=== PATIENT | female | born 1930 | race Caucasian/White ===

== ENCOUNTER 2018-03-17 08:13 | Inpatient (IN) | payer MEDICARE ==
[~2018-03-17] VITALS: Ht 157.5 cm; Wt 65.8 kg
[2018-03-17 08:20] VITALS: BP 130/73
--- NOTE | 2018-03-17 08:20 | NUR ---
TO BED # 7 AMBULATORY WITH NC, REPORT GIVEN TO JANIYA HICKEY
[2018-03-17] MEDS ORDERED: NACL 0.9% 1,000 ML IV SCH (09:12)
[2018-03-17] MEDS ORDERED: NACL 0.9% 1,000 ML IV ONE (09:12)
[2018-03-17] MEDS ORDERED: SODIUM PHOSPHATE 118 ML ENEM RC ONE (09:15)
[2018-03-17] MEDS ORDERED: METOCLOPRAMIDE 10 MG/2 ML INJ VIAL IVP ONE (09:15)
[2018-03-17] MEDS ORDERED: LACTULOSE 20 GM/30 ML UDC PO ONE (09:15)
[2018-03-17 09:32] LABS: BASOPHILS % (AUTO) 0.4 % (0.0-2.0); HEMATOCRIT 39.8 % (36-48); HEMOGLOBIN 12.7 g/dL (12.0-16.0); LYMPHOCYTES % (AUTO) 8.5 % (20.5-51.1); MEAN CORPUSCULAR HEMOGLOBIN 27 pg (27-31); MEAN CORPUSCULAR HGB CONC 32 g/dL (33-37); MEAN CORPUSCULAR VOLUME 85.6 fL (80-94); MONOCYTES # (AUTO) 0.7 K/uL (0.8-1.0); MONOCYTES % (AUTO) 6.3 % (1.7-9.3); NEUTROPHILS # (AUTO) 9.7 K/uL (1.8-7.7); NEUTROPHILS % (AUTO) 84.8 % (42.2-75.2); PLATELET COUNT (AUTO) 287 K/uL (140-450); RED BLOOD CELL COUNT(AUTO) 4.65 MIL/uL (4.20-5.40); RED CELL DISTRIBUTION WIDTH 14.6 % (11.6-13.7); WHITE BLOOD COUNT (AUTO) 11.4 K/uL (4.8-10.8)
--- NOTE | 2018-03-17 09:32 | NUR ---
CONSTIPATION, SINCE TUESDAY, BACK PAIN FOR 3 DAYS. HX : COPD, EMPHYSIMA. DENIES N/V/D; SKIN IS PINK/WARM/DRY; AAOX4 WITH EVEN AND STEADY GAIT. PT DENIES ANY FEVER, CP OR COUGH AT THIS TIME; PATIENT STATES PAIN OF 7/10 AT THIS TIME; PATIENT POSITIONED FOR COMFORT; HOB ELEVATED; BEDRAILS UP X2; BED DOWN. ER MD MADE AWARE OF PT STATUS.
--- NOTE | 2018-03-17 09:41 | NUR ---
PT TAKEN TO CT , ACCOMPANIED BY TIMBER REPAIRER.
--- NOTE | 2018-03-17 09:41 | NUR ---
PT TAKEN TO CT AT THIS TIME
[2018-03-17 09:45] LABS: ANION GAP 13.2 (8-16); CARBON DIOXIDE 27.9 mmol/L (21-32); CHLORIDE 100 mmol/L (98-107); POTASSIUM 4.1 mmol/L (3.5-5.1); SODIUM SERUM 137 mmol/L (136-145)
[2018-03-17 09:46] LABS: ALBUMIN 3.5 g/dL (3.4-5.0); AMYLASE 52 U/L (25-115); ASPARTATE AMINOTRANSFERASE 48 U/L (15-37); CREATININE 1.3 mg/dL (0.6-1.3); GLUCOSE 112 mg/dL (74-106); LIPASE 80 U/L (73-393); TOTAL BILIRUBIN 0.4 mg/dL (0.0-1.0); UREA NITROGEN, BLOOD 24 mg/dL (7-18)
--- NOTE | 2018-03-17 09:52 | NUR ---
PT RETURNED FROM CT AT THIS TIME
[2018-03-17 10:43] LABS: APPEARANCE,URINE CLOUDY (CLEAR); COLOR,URINE YELLOW (YELLOW)
[2018-03-17 10:44] LABS: BILIRUBIN,URINE NEGATIVE (NEGATIVE); BLOOD, URINE TRACE (NEGATIVE); LEUKOCYTE ESTERASE ,URINE NEGATIVE (NEGATIVE); NITRITE, URINE NEGATIVE (NEGATIVE); UGLUCOSE NEGATIVE (NEGATIVE)
[2018-03-17 10:49] LABS: RBC,URINE 3-10 (FEW) /HPF (0-5)
[2018-03-17 10:50] LABS: URINE AMORPHOUS URATE 4+ /HPF (None Seen); WBC,URINE 0-5 (RARE) /HPF (0-5)
[2018-03-17] MEDS ORDERED: PRED20TA5 PO (11:24)
[2018-03-17] MEDS ORDERED: FLUT1BLS3 IH (11:24)
[2018-03-17] MEDS ORDERED: AMIO200T5 PO (11:24)
[2018-03-17] MEDS ORDERED: LEVO0.1331 PO (11:24)
[2018-03-17] MEDS ORDERED: ATOR10TA PO (11:24)
[2018-03-17] MEDS ORDERED: ASPI81CT89 PO (11:24)
[2018-03-17] MEDS ORDERED: OMEP20TC PO (11:24)
[2018-03-17 12:02] LABS: PROTHROMBIN TIME 10.4 secs (10.8-13.4)
[2018-03-17] MEDS ORDERED: MORPHINE SULFATE 2 MG/ML SYR IVP PRN (12:50)
[2018-03-17] MEDS: NACL 0.9% 1,000 ML IV SCH ×2 (12:50→20:07)
[2018-03-17] MEDS ORDERED: ACETAMINOPHEN 325 MG TAB PO PRN (12:50)
[2018-03-17] MEDS ORDERED: HYDROcodone/APAP 5/325 MG 1 TAB TAB PO PRN (12:50)
[2018-03-17] MEDS ORDERED: ONDANSETRON 4 MG/2 ML VIAL IVP PRN (12:50)
--- NOTE | 2018-03-17 12:59 | NUR ---
REPORT GIVEN TO DELMAR MARLEY
--- NOTE | 2018-03-17 14:00 | NUR ---
RECEIVED REPORT FROM ER NURSE AT BEDSIDE. PT IS AMBULATORY,, HAS GENERALISED WEAKNESS. PT HAS LEFT HAND RESTRICTION, HX OF LYMPHECTOMY. PT AOX4, ADMITTED WITH DX OF OBSTRUCTIVE HYDRONEPHROSIS. CC OF RT LOWER FLANK PAIN WITH CONSTIPATION X3 DAYS. HAS IV RT AC 20 G. IVF NS INFUSING AT 100 ML/HR. NO SIGN OF DISTRESS NOTED AT TIHIS TIME. COMPLAINING OF PAIN. INFORMED HER THAT WILL MEDICATE WITH PAIN MEDS. CALL LIGHT WITHIN PT REACH.
--- NOTE | 2018-03-17 14:00 | NUR ---
Patient will be admitted to care of DR MORRIS. Admited to TELE. Will go to room 110B. Belongings list completed. Report to SOFIA HICKEY.
[2018-03-17 16:00] VITALS: BP 123/65
--- NOTE | 2018-03-17 16:30 | NUR ---
CHECKED ON PT. VS WITHI NORMAL RANGE, STATES PAIN AT SAME LEVEL, BUT TOLERATBLE RT NOW. PT OFFERED WITH JUICE AND JELLO AND FRUIT CUP. NO SIGN OF DISTRESS AT THIS TIME. CALL LIGHT WITHIN PT REACH. WILL CONTINUE TO MONITOR PT.
--- NOTE | 2018-03-17 17:59 | NUR ---
CHECKED ON PT EATING HER FOOD. STATES BEING OKAY AT THIS TIME. CALL LIGHT WITHIN PT REACH. WILL CONTINUE TO MONITOR PT.
--- NOTE | 2018-03-17 19:25 | NUR ---
ENDORSED PT TO PM NURSE AT BEDSIDE. PT IN STABLE CONDITION.
--- NOTE | 2018-03-17 19:25 | NUR ---
RECEIVED BEDSIDE REPORT FROM RN SOFIA, PATIENT IN BED, ON 2 L NC, REPORTS PAIN IN BACK. ALERT AND ORIENTATED X4, ON FALL RISK FOR HX OF FALLS, IV IN RIGHT AC INFUSING NS AT 100 ML/HR, DRESSING IS WET, ASKED IN WANTED TO BE CHANGED, PATIENT REPORTED NO SINCE THE TAPE HURTS TO BE REMOVED, WILL CONTINUE TO MONITOR SITE. PATIENT SIGNED CONSENT FOR EGD, CONSENT IN CHART. V/S TAKEN ALL WITHIN BASELINE, CALL LIGHT WITHIN REACH, WILL CONTINUE TO MONITOR.
[2018-03-17 20:00] VITALS: BP 144/60
--- NOTE | 2018-03-17 20:00 | NUR ---
CALLED DR CARRERO, MOTOR MECHANIC DR IS DR DEGROOT. WAITING FOR CALL BACK FOR ORDERS FOR NPO STATUS, DEXTROSE, AND BREATHING TREATMENTS.
[2018-03-17] MEDS: METOPROLOL 25 MG TAB PO SCH (20:07)
--- NOTE | 2018-03-17 20:07 | NUR ---
DUE MEDICATIONS GIVEN, PATIENT TOLERATED WELL, PATIENT GIVEN NORCO FOR BACK PAIN.
--- NOTE | 2018-03-17 22:15 | NUR ---
PATIENT HAD MODERATE SIZE BM.
--- NOTE | 2018-03-17 22:35 | NUR ---
CALL FROM DR DEGROOT, ORDERS FOR DEXTROSE 0.9% AT 100 ML/HR, BREATHING TREATMENTS WITH ALBUTEROL Q6HR PRN, AND NPO STATUS FOR EGD PROCEDURE.
[2018-03-17] MEDS: DEXT 5% /NACL 0.9% 1,000 ML IV SCH (23:08)
[2018-03-17] MEDS: ALBUTEROL SULFATE/IPRATROPIU 3 ML SOL IH PRN (23:32)
[2018-03-18] VITALS: BP 140/60
--- NOTE | 2018-03-18 00:20 | NUR ---
V/S TAKEN ALL WITHIN BASELINE, PATIENT DENIES PAIN. PRE-OP CHECKLIST COMPLETED.
--- NOTE | 2018-03-18 00:30 | NUR ---
PLACED PATIENTS NECKLESS IN PURSE, PATIENT AWARE.
--- NOTE | 2018-03-18 02:30 | NUR ---
ASSISTED PATIENT TO BED SIDE COMMODE. PATIENT STATES "I FEEL LIKE I NEED TO USE RESTROOM". WILL ASSIST BACK TO BED.
[2018-03-18] MEDS: ALBUTEROL SULFATE/IPRATROPIU 3 ML SOL IH PRN ×4 (02:40→19:18)
--- NOTE | 2018-03-18 02:40 | NUR ---
AWAKE AND ALERT C/O SOB HHN PRN THERAPY GIVEN ENCOURAGED PATIENT FOR DEEP BREATHING AND COUGH DURING THERAPY SPONTANEOUS EXPECTORATION OF MODERATE THICK YELLOW SECRETIONS
--- NOTE | 2018-03-18 02:40 | NUR ---
ASSISTED PATIENT BACK TO BED, PATIENT C/O HAVING PROBLEMS BREATHING, PLACED HOB AT 90 DEGREES, O2 SAT 94% ON 3 L NC WITH HUMIDIFIER. CALLED R/T TO GIVE BREATHING TREATMENT. R/T AT BEDSIDE.
--- NOTE | 2018-03-18 02:55 | NUR ---
BREATHING TREATMENT COMPLETED, PATIENT EXPELLED YELLOW SPUTUM. R/T RECOMMEND BREATHING TREATMENT Q6H WHILE AWAKE AND IS. WILL CALL DR CARRERO FOR ORDERS.
[2018-03-18 04:00] VITALS: BP 128/59
--- NOTE | 2018-03-18 05:13 | NUR ---
WILL HOLD SYNTHROID PER NPO STATUS.
[2018-03-18] MEDS: LEVOTHYROXINE 0.112 MG, LEVOTHYROXINE 0.025 MG PO SCH ×2 (05:23)
[2018-03-18 06:46] LABS: BASOPHILS % (AUTO) 0.4 % (0.0-2.0); EOSINOPHILS % (AUTO) 0.2 % (0.0-4.0); HEMATOCRIT 37.6 % (36-48); HEMOGLOBIN 12.2 g/dL (12.0-16.0); LYMPHOCYTES # (AUTO) 1.5 K/uL (2.5-16.5); LYMPHOCYTES % (AUTO) 18.6 % (20.5-51.1); MEAN CORPUSCULAR HEMOGLOBIN 28 pg (27-31); MEAN CORPUSCULAR HGB CONC 32 g/dL (33-37); MEAN CORPUSCULAR VOLUME 86.6 fL (80-94); MONOCYTES # (AUTO) 0.8 K/uL (0.8-1.0); MONOCYTES % (AUTO) 10.3 % (1.7-9.3); NEUTROPHILS # (AUTO) 5.7 K/uL (1.8-7.7); NEUTROPHILS % (AUTO) 70.5 % (42.2-75.2); PLATELET COUNT (AUTO) 257 K/uL (140-450); RED BLOOD CELL COUNT(AUTO) 4.35 MIL/uL (4.20-5.40); WHITE BLOOD COUNT (AUTO) 8.2 K/uL (4.8-10.8)
--- NOTE | 2018-03-18 07:11 | NUR ---
ENDORSED PATIENT TO DAY SHIFT NURSE, PATIENT STABLE.
--- NOTE | 2018-03-18 07:15 | NUR ---
RECEIVED PT FROM WORKERS COMPENSATION PARALEGAL NURSERAVINDER, PT IS AWAKE LYING ON THE BED WITH SIDE RAILS UP AND CALL LIGHT WITHIN REACH, SAFETY AND FALL PRECAUTION INITIATED. PT HAS A CENTRAL LINE ON THE LEFT INTRAJUGULAR VEIN, TRIPLE,LUMEN ON SALINE LOCK, PT HAS A LEFT KNEE FRACTURE WITH BRACE ON, ELEVATED ON A PILLOW, PT HAS BRUISES ON THE FACE AND HAS A LEFT FOREHEAD WOUND FROM A FALL AND INCONTINENT DERMATITIS. PT DENIES PAIN AT THIS TIME AND NO SIGN OF DISTRESS NOTED. WILL CONTINUE TO MONITOR PT. Addendum: 03/18/18 at 1818 by Ruth Slaughter RN ABOVE NOTE IS NOT FOR THE PT.
--- NOTE | 2018-03-18 07:15 | NUR ---
RECEIVED PT FROM SENSOR OPERATOR NURSE, SUMMER, PT IS AWAKE AND LYING ON THE BED WITH SIDE RAILS UP AND CALL LIGHT WITHIN REACH, PT IS ON O2 2L NC WITH AND IV LINE ON THE RT AC G. 20, INTACT WITH D5NS AT 100ML/HR, INFUSING, PT DENIES PAIN, PT HAS A RESTRICTED LEFT ARM, SIGN POSTED. NO SIGN OF DISTRESS NOTED AND WILL CONTINUE TO MONITOR.
[2018-03-18] MEDS ORDERED: fentaNYL 0.05 MG/ML VIAL ONE (07:26)
[2018-03-18] MEDS ORDERED: MIDAZOLAM 2 MG/2 ML VIAL ONE (07:27)
[2018-03-18] MEDS: MIDAZOLAM 2 MG/2 ML VIAL IVP ONE ×2 (07:46→08:00)
[2018-03-18] MEDS: fentaNYL 0.05 MG/ML VIAL IVP ONE ×2 (07:47→08:00)
[2018-03-18 08:00] VITALS: BP 148/86
--- NOTE | 2018-03-18 08:00 | NUR ---
PT IS AWAKE AND LYING ON THE BED, VITAL SIGNS TAKEN AND IS WITHIN NORMAL LIMIT, WILL CONTINUE TO MONITOR.
--- NOTE | 2018-03-18 08:15 | NUR ---
PT IS OFF UNIT NOW FOR AN EGD. PT IS STABLE AT THIS TIME.
[2018-03-18 08:17] LABS: ANION GAP 13.6 (8-16); CARBON DIOXIDE 26.2 mmol/L (21-32); CHLORIDE 106 mmol/L (98-107); GLUCOSE 101 mg/dL (74-106); POTASSIUM 3.8 mmol/L (3.5-5.1); SODIUM SERUM 142 mmol/L (136-145)
[2018-03-18 08:18] LABS: ALBUMIN 2.9 g/dL (3.4-5.0); ASPARTATE AMINOTRANSFERASE 43 U/L (15-37); TOTAL BILIRUBIN 0.3 mg/dL (0.0-1.0); UREA NITROGEN, BLOOD 19 mg/dL (7-18)
--- NOTE | 2018-03-18 08:50 | NUR ---
PT IS ABACK TO ROOM FROM THE EGD, PT IS STABLE AT THIS TIME AND NOM SIGN OF DISTRESS NOTED. WILL MONITOR.
[2018-03-18] MEDS ORDERED: NON-FORMULARY ITEM (Levothyroxine Sodium* (Synthroid*) 0.137 MG) PO SCH (09:00)
[2018-03-18] MEDS: DEXT 5% /NACL 0.9% 1,000 ML IV SCH ×2 (09:34→18:22)
[2018-03-18] MEDS: PANTOPRAZOLE 40 MG INJ VIAL IVP SCH (09:35)
[2018-03-18] MEDS: PSYLLIUM 12.2 GM/PKT PO SCH (09:35)
[2018-03-18] MEDS: ASPIRIN 81 MG TAB.CHEW PO SCH ×2 (09:36→09:38)
[2018-03-18] MEDS: ATORVASTATIN 20 MG TAB PO SCH (09:38)
[2018-03-18] MEDS: METOPROLOL 25 MG TAB PO SCH ×2 (09:39→21:33)
[2018-03-18] MEDS: AMIODARONE 200 MG TAB PO SCH (09:39)
[2018-03-18] MEDS: predniSONE 20 MG TAB PO SCH (09:39)
[2018-03-18] MEDS: SODIUM PHOSPHATE 118 ML ENEM RC SCH (09:40)
[2018-03-18] MEDS: BISACODYL 10 MG SUPP RC SCH (09:40)
--- NOTE | 2018-03-18 09:50 | NUR ---
PATIENT HAS BEEN SCREENED AND CATEGORIZED MODERATE NUTRITION RISK. PATIENT WILL BE SEEN WITHIN 3-5 DAYS OF ADMISSION. 03/20/18-03/22/[address] Addendum: 03/20/18 at [address] NOTE [facility] REFERRAL RECEIVED 03/17/18 FOR 'NOT APPLICABLE' DOES NOT MEET HIGH NUTRITION RISK CRITERIA. PATIENT WILL BE SEEN/ASSESSED STATED ABOVE. TAWANA FREIRE RD
--- NOTE | 2018-03-18 09:58 | NUR ---
ONLY ONE ASPIRIN GIVEN TO PT.
[2018-03-18 12:00] VITALS: BP 137/68
[2018-03-18 16:00] VITALS: BP 138/74
--- NOTE | 2018-03-18 16:15 | NUR ---
PT'S IV LINE WAS OPUT AND A NEW IV LINE WAS INSERTED ON THE RT HAND G. 22 WITH D5NS AT 100ML/HR, INFUSING.
--- NOTE | 2018-03-18 19:30 | NUR ---
RECEIVED BEDSIDE REPORT FROM RUPERTO MASON, PATIENT IN BED, ON 2 L NC, IV IN RIGHT FA 22 G INFUSING DEXTROSE AND NS AT 100 ML/HR, V/S TAKEN ALL WITHIN BASELINE. PATIENT DENIES PAIN BUT EXPRESSES CONCERNS THAT SHE IS SAD THAT SHE HAS TO LIVE WITH KIDNEY PROBLEMS FOR THE REST OF HER LIFE. OFFERED THERAPEUTIC COMMUNICATION AND ALLOWED PATIENT TO VENT HER CONCERNS. WILL CONTINUE TO MONITOR.
--- NOTE | 2018-03-18 19:30 | NUR ---
ENDORSED PT TO GOVERNMENT AFFAIRS SPECIALIST NURSE, SUMMER FOR CONTINUITY OF CARE, PT TIS STABLE AT THIS TIME.
[2018-03-18 20:00] VITALS: BP 132/98
--- NOTE | 2018-03-18 21:00 | NUR ---
EXPLAINED DUE MEDICATION, WILL ADMINISTER ACCORDING TO MD ORDER.
--- NOTE | 2018-03-18 23:00 | NUR ---
ASSISTED PATIENT RESTROOM, PATIENT HAS STEADY GAIT, PATIENT URINATED X1, ASSISTED BACK TO BED.
[2018-03-19] VITALS: BP 130/39
[2018-03-19] MEDS: ALBUTEROL SULFATE/IPRATROPIU 3 ML SOL IH PRN ×3 (00:22→12:17)
--- NOTE | 2018-03-19 00:30 | NUR ---
ASSISTED PATIENT TO AMBULATED TO BEDSIDE COMMODE, PATIENT C/O HAVING DIFFICULTY BREATHING, CALLED R/T TO GIVE BREATHING TREATMENT.
--- NOTE | 2018-03-19 01:49 | NUR ---
CALL DAUGHTER KARY, LEFT MESSAGE, CALL BACK FROM DAUGHTER, SHE SAID SHE WILL BE HERE TO SIGN CONSENT IN MORNING. Addendum: 03/19/18 at 0632 by Caridad Fish RN WRONG PATIENT
--- NOTE | 2018-03-19 03:36 | NUR ---
PATIENT REQUESTED A SLEEPING PILL, EXPLAINED IT IS TOO LATE TO TAKE SLEEPING FEEL AND WE NEED AN ORDER. PATIENT STATED OKAY.
[2018-03-19 04:00] VITALS: BP 126/80
[2018-03-19] MEDS: DEXT 5% /NACL 0.9% 1,000 ML IV SCH ×2 (04:00→16:05)
[2018-03-19] MEDS: LEVOTHYROXINE 0.112 MG, LEVOTHYROXINE 0.025 MG PO SCH ×2 (05:51)
--- NOTE | 2018-03-19 06:31 | NUR ---
PATIENT C/O PAIN AT IV, STARTED NEW IV ON RIGHT HAND 20 G. WILL CONTINUE TO MONITOR.
--- NOTE | 2018-03-19 07:30 | NUR ---
ENDORSED PATIENT TO DAY SHIFT NURSE NEETU, PATIENT STABLE.
--- NOTE | 2018-03-19 07:30 | NUR ---
PATIENT WAS AWAKE, ALERT. RESPIRATION EVEN, UNLABOR ON 3L NC. SKIN DRY AND WARM. IV PATENT AND INTACT. DENIED PAIN, SOB AT THIS TIME. PLAN OF CARE WAS DISCUSSED WITH PATIENT. BED AT LOW POSITION, SIDE RAILS UP. CALL LIGHT WITHIN REACH.
[2018-03-19 07:31] LABS: BASOPHILS % (AUTO) 0.3 % (0.0-2.0); EOSINOPHILS % (AUTO) 0.1 % (0.0-4.0); HEMATOCRIT 37.3 % (36-48); LYMPHOCYTES # (AUTO) 1.5 K/uL (2.5-16.5); MEAN CORPUSCULAR HEMOGLOBIN 28 pg (27-31); MEAN CORPUSCULAR HGB CONC 32 g/dL (33-37); MEAN CORPUSCULAR VOLUME 86.8 fL (80-94); MONOCYTES # (AUTO) 0.9 K/uL (0.8-1.0); MONOCYTES % (AUTO) 11.9 % (1.7-9.3); NEUTROPHILS # (AUTO) 4.9 K/uL (1.8-7.7); NEUTROPHILS % (AUTO) 66.7 % (42.2-75.2); PLATELET COUNT (AUTO) 267 K/uL (140-450); RED BLOOD CELL COUNT(AUTO) 4.29 MIL/uL (4.20-5.40); WHITE BLOOD COUNT (AUTO) 7.3 K/uL (4.8-10.8)
[2018-03-19 08:00] VITALS: BP 147/87
[2018-03-19 08:16] LABS: ALBUMIN 3.1 g/dL (3.4-5.0); ANION GAP 14.7 (8-16); ASPARTATE AMINOTRANSFERASE 82 U/L (15-37); CARBON DIOXIDE 26.2 mmol/L (21-32); CHLORIDE 108 mmol/L (98-107); CREATININE 0.9 mg/dL (0.6-1.3); GLUCOSE 90 mg/dL (74-106); POTASSIUM 3.9 mmol/L (3.5-5.1); SODIUM SERUM 145 mmol/L (136-145); TOTAL BILIRUBIN 0.3 mg/dL (0.0-1.0); UREA NITROGEN, BLOOD 16 mg/dL (7-18)
[2018-03-19] MEDS: SODIUM PHOSPHATE 118 ML ENEM RC SCH (09:00)
[2018-03-19] MEDS: PANTOPRAZOLE 40 MG INJ VIAL IVP SCH (09:36)
[2018-03-19] MEDS: AMIODARONE 200 MG TAB PO SCH (09:39)
[2018-03-19] MEDS: predniSONE 20 MG TAB PO SCH (09:40)
[2018-03-19] MEDS: BISACODYL 10 MG SUPP RC SCH (09:41)
[2018-03-19] MEDS: ATORVASTATIN 20 MG TAB PO SCH (09:41)
[2018-03-19] MEDS: METOPROLOL 25 MG TAB PO SCH ×2 (09:42→21:00)
--- NOTE | 2018-03-19 09:45 | NUR ---
PATIENT WAS AWAKE, ALERT. RESPIRATION EVEN, UNLABOR ON 2L NC. MEDS WERE GIVEN PER ORDER. NO DISTRESS NOTED AT THIS TIME
[2018-03-19] MEDS: PSYLLIUM 12.2 GM/PKT PO SCH (09:46)
[2018-03-19] MEDS: ASPIRIN 81 MG TAB.CHEW PO SCH (09:59)
--- NOTE | 2018-03-19 11:43 | NUR ---
PATIENT WAS AWAKE, ALERT. RESPIRATION EVEN, UNLABOR ON 2L NC. DENIED PAIN, SOB AT THIS TIME. NO DISTRESS NOTED. FAMILY AT BEDSIDE. CALL LIGHT WITHIN REACH
[2018-03-19 12:00] VITALS: BP 159/79
--- NOTE | 2018-03-19 12:11 | NUR ---
PATIENT COMPLAINED OF SOB, REQUESTING TO HAVE BREATHING TREATMENT. RT WAS MADE AWARE
--- NOTE | 2018-03-19 12:15 | NUR ---
PATIENT WAS AWAKE, ALERT, SITTING ON BED. RESPIRATION EVEN, UNLABOR ON 2L NC. IV PATENT AND INTACT. NO DISTRESS NOTED AT THIS TIME. FAMILY AT BEDSIDE. CALL LIGHT WITHIN REACH Addendum: 03/19/18 at 1745 by Alexandria Roberts RN WRONG TIME, EXACT TIME 1415
[2018-03-19] MEDS ORDERED: FAMOTIDINE 20 MG/2 ML VIAL IV SCH (15:00)
[2018-03-19] MEDS ORDERED: ALBUTEROL SULFATE/IPRATROPIU 3 ML SOL IH PRN (15:40)
[2018-03-19 16:00] VITALS: BP 137/80
[2018-03-19] MEDS ORDERED: AZITHROMYCIN 500 MG in DEXTROSE 5% 250 ML IV SCH (16:00)
--- NOTE | 2018-03-19 16:00 | NUR ---
DR. CARRERO WAS MADE AWARE OF PATIENT CANNOT HAVE AMIODERONE AND ZITHROMAX TOGETHER PER PATIENT AND PHARMACY. LEVAQUIN WAS ORDERED PER DR. CARRERO, WILL MEDICATE PER ORDER
[2018-03-19] MEDS ORDERED: LEVOFLOXACIN 250 MG/D5 PREMIX 50 ML IV ONE (17:55)
[2018-03-19] MEDS: LEVOFLOXACIN 250 MG/D5 PREMIX 50 ML IV SCH (18:25)
--- NOTE | 2018-03-19 18:30 | NUR ---
PATIENT WAS AWAKE, ALERT. RESPIRATION EVEN, UNLABOR ON 2L NC. IV PATENT AND INTACT, MED WAS GIVEN PER ORDER. NO DISTRESS NOTED AT THIS TIME
[2018-03-19] MEDS: ALBUTEROL SULFATE/IPRATROPIU 3 ML SOL IH SCH (18:45)
--- NOTE | 2018-03-19 18:51 | NUR ---
RECEIVED PATIENT ON 3L NC, O2 SAT 96%. SCHEDULED BREATHING TREATMENT ADMINISTERED. PATIENT TOLERATED TX WELL, NO ADVERSE SIDE EFFECTS. PLACED PATIENT BACK ON 3L NC POST TX. NO RESPIRATORY DISTRESS NOTED AT THIS TIME. WILL CONTINUE TO MONITOR.
--- NOTE | 2018-03-19 19:16 | NUR ---
RECEIVED BEDSIDE REPORT FROM DAY SHIFT RN, PATIENT IN BED, ON 3 L VIA NC, NO SIGNS OF ACUTE DISTRESS, IV IN RIGHT HAND 20G, INFUSING LEVAQUIN AT 50 ML/HR, DRESSING INTACT. ON FALL RISK PRECAUTIONS, ASSISTED TO BEDSIDE COMMODE 100 ML OUTPUT. V/S TAKEN NOTED BP 153/95, WILL GIVE SCHEDULED BP MED. EXPLAINED PLAN OF CARE UPDATED BOARD, CALL LIGHT WITHIN REACH, WILL CONTINUE TO MONITOR.
--- NOTE | 2018-03-19 19:16 | NUR ---
ENDORSEMENT GIVEN TO SENIOR HEALTH CONSULTANT NURSE. PATIENT IS STABLE AT THIS TIME
[2018-03-19 20:00] VITALS: BP 153/95
[2018-03-19] MEDS: methylPREDNISolone SS 40 MG/ML VIAL IVP SCH (21:00)
[2018-03-19] MEDS ORDERED: TEMAZEPAM 15 MG CAP PO SCH (21:00)
--- NOTE | 2018-03-19 21:07 | NUR ---
PATIENT C/O HAVING DIFFICULTY SLEEPING THE LAST FEW DAYS. REQUESTED A SLEEPING PILL. CALLED DR CARRERO, CALL BACK FROM DR SUAREZ, ORDER FOR ZESTRIL 15 ML PO. WILL PUT IN ORDER AND ADMINISTER ACCORDING TO MD ORDER.
--- NOTE | 2018-03-19 22:30 | NUR ---
PATIENT REQUESTED BREATHING TREATMENT, NOTED EXPIRATORY WHEEZING, O SAT 96% ON 3 L VIA NC. CALLED R/T FOR BREATHING TREATMENT. Addendum: 03/19/18 at 2246 by Caridad Fish RN O2 SAT
--- NOTE | 2018-03-19 22:35 | NUR ---
PATIENT COMPLAINING OF SOB. PRN BREATHING TX ADMINISTERED. TOLERATED TX WELL, NO ADVERSE SIDE EFFECTS. PATIENTS STATES TO BE "FEELING A LITTLE BETTER." NO DISTRESS NOTED AT THIS TIME. RETURNED TO 3L NC. WILL CONTINUE TO MONITOR.
[2018-03-20] VITALS: BP 125/60
--- NOTE | 2018-03-20 00:31 | NUR ---
V/S TAKEN ALL WITHIN BASELINE, ASSISTED PATIENT TO AMBULATE TO BEDSIDE COMMODE, ASSISTED BACK TO BED.
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
[2018-03-20] MEDS: DEXT 5% /NACL 0.9% 1,000 ML IV SCH ×3 (01:00→22:09)
[2018-03-20] MEDS: ALBUTEROL SULFATE/IPRATROPIU 3 ML SOL IH SCH ×4 (01:25→19:36)
--- NOTE | 2018-03-20 01:37 | NUR ---
SCHEDULED BREATHING TX ADMINISTERED. TOLERATED TX WELL, NO ADVERSE SIDE EFFECTS. PLACED BACK ON 3L NC WITH BUBBLE HUMIDIFICATION. WILL CONTINUE TO MONITOR.
--- NOTE | 2018-03-20 01:50 | NUR ---
PATIENT RESTING IN BED, NO SIGNS OF DISTRESS, CALL LIGHT WITHIN REACH, BED ALARM ON.
[2018-03-20 04:00] VITALS: BP 150/87
--- NOTE | 2018-03-20 04:00 | NUR ---
V/S TAKEN ALL WITHIN BASELINE, WILL CONTINUE TO MONITOR.
[2018-03-20] MEDS: LEVOTHYROXINE 0.112 MG, LEVOTHYROXINE 0.025 MG PO SCH ×2 (06:22)
[2018-03-20] MEDS: methylPREDNISolone SS 40 MG/ML VIAL IVP SCH ×3 (06:22→21:01)
--- NOTE | 2018-03-20 07:20 | NUR ---
ENDORSED PATIENT TO DAY SHIFT NURSE, PATIENT RECEIVING BREATHING TREATMENTS.
--- NOTE | 2018-03-20 07:21 | NUR ---
RECEIVED BEDSIDE REPORT FROM PM NURSE CONTRERAS. PT IS AWAKE, VERBALLY RESPONSIVE. RT AT BEDSIDE PROVIDING TX. CALL LIGHT WITHIN REACH. DAUGHTER AT BEDSIDE.
[2018-03-20 07:47] LABS: BASOPHILS % (AUTO) 0.1 % (0.0-2.0); HEMOGLOBIN 11.7 g/dL (12.0-16.0); LYMPHOCYTES # (AUTO) 0.3 K/uL (2.5-16.5); LYMPHOCYTES % (AUTO) 5.2 % (20.5-51.1); MEAN CORPUSCULAR HEMOGLOBIN 28 pg (27-31); MEAN CORPUSCULAR HGB CONC 33 g/dL (33-37); MEAN CORPUSCULAR VOLUME 87.1 fL (80-94); MONOCYTES # (AUTO) 0.2 K/uL (0.8-1.0); MONOCYTES % (AUTO) 3.9 % (1.7-9.3); NEUTROPHILS # (AUTO) 5.4 K/uL (1.8-7.7); NEUTROPHILS % (AUTO) 90.8 % (42.2-75.2); PLATELET COUNT (AUTO) 283 K/uL (140-450); RED BLOOD CELL COUNT(AUTO) 4.14 MIL/uL (4.20-5.40); RED CELL DISTRIBUTION WIDTH 14.6 % (11.6-13.7); WHITE BLOOD COUNT (AUTO) 5.9 K/uL (4.8-10.8)
[2018-03-20 08:00] VITALS: BP 120/72
[2018-03-20] MEDS: ASPIRIN 81 MG TAB.CHEW PO SCH (08:30)
[2018-03-20] MEDS: AMIODARONE 200 MG TAB PO SCH (08:30)
[2018-03-20] MEDS: METOPROLOL 25 MG TAB PO SCH ×2 (08:30→21:01)
[2018-03-20] MEDS: ATORVASTATIN 20 MG TAB PO SCH (08:30)
[2018-03-20] MEDS: BISACODYL 10 MG SUPP RC SCH (08:31)
[2018-03-20] MEDS: FAMOTIDINE 20 MG/2 ML VIAL IV SCH (08:31)
[2018-03-20] MEDS: PSYLLIUM 12.2 GM/PKT PO SCH (08:31)
[2018-03-20] MEDS: PANTOPRAZOLE 40 MG INJ VIAL IVP SCH (08:31)
[2018-03-20 08:35] LABS: ANION GAP 13.4 (8-16); ASPARTATE AMINOTRANSFERASE 127 U/L (15-37); CARBON DIOXIDE 26.7 mmol/L (21-32); CHLORIDE 108 mmol/L (98-107); CREATININE 0.9 mg/dL (0.6-1.3); GLUCOSE 133 mg/dL (74-106); POTASSIUM 4.1 mmol/L (3.5-5.1); SODIUM SERUM 144 mmol/L (136-145); TOTAL BILIRUBIN 0.2 mg/dL (0.0-1.0); UREA NITROGEN, BLOOD 13 mg/dL (7-18)
[2018-03-20] MEDS: SODIUM PHOSPHATE 118 ML ENEM RC SCH (09:00)
[2018-03-20 12:00] VITALS: BP 147/95
--- NOTE | 2018-03-20 13:10 | NUR ---
DR CARRERO AT BEDSIDE ASSESSING PT.
[2018-03-20] MEDS ORDERED: ZOLPIDEM 5 MG TAB PO PRN (13:50)
--- NOTE | 2018-03-20 14:30 | NUR ---
PHYSICAL THERAPY CO-SIGN The Physical Therapy Progress Notes documented by Family Sociologist have been reviewed. I concur with the documentation of this SKIING TEACHER. Plan: continue as per plan of care. Reviewed/Co-Signed by: Mariela Marshall DPT Documentation Done by: Neo [place] SKIING TEACHER Addendum: 03/20/18 at 1457 by Mariela Marshall PT Amended: Links added.
--- NOTE | 2018-03-20 15:50 | NUR ---
PT WITH x1 SMALL BROWN FORMED STOOL IN COMMODE. ABLE TO TRANSFER TO COMMODE & PROVIDE PERICARE INDEPENDENTLY. PT HAS NO C/O DISCOMFORT, RESPIRATIONS EVEN & NONLABORED ON O2 @ 3LPM VIA N/C. CALL LIGHT WITHIN REACH. RIGHT HAND IV INTACT & ASYMPTOMATIC WITH ONGOING IVF.
[2018-03-20 16:00] VITALS: BP 145/78
[2018-03-20] MEDS: LEVOFLOXACIN 250 MG/D5 PREMIX 50 ML IV SCH (18:44)
--- NOTE | 2018-03-20 19:15 | NUR ---
BEDSIDE REPORT GIVEN TO PM NURSE REGINA.
--- NOTE | 2018-03-20 19:16 | NUR ---
RECEIVED REPORT FROM DAYSHIFT NURSE AT BEDSIDE FOR CONTINUITY OF CARE. PT AAOX2. PT IV NOTED R HAND 20G D5 NS 100ML/HR. NO SOB NO S/S OF DISTRESS ON O2 2L NC. BED LOWERED CALL LIGHT WITHIN REACH WILL CONTINUE TO MONITOR.
[2018-03-20 20:00] VITALS: BP 130/75
[2018-03-21] VITALS: BP 138/73
[2018-03-21] MEDS: ALBUTEROL SULFATE/IPRATROPIU 3 ML SOL IH SCH ×2 (01:21→07:20)
[2018-03-21 04:00] VITALS: BP 156/98
[2018-03-21] MEDS: LEVOTHYROXINE 0.112 MG, LEVOTHYROXINE 0.025 MG PO SCH ×2 (05:32)
[2018-03-21] MEDS: methylPREDNISolone SS 40 MG/ML VIAL IVP SCH ×2 (05:32→13:32)
[2018-03-21 06:40] LABS: HEMATOCRIT 34.4 % (36-48); HEMOGLOBIN 11.3 g/dL (12.0-16.0); LYMPHOCYTES # (AUTO) 0.6 K/uL (2.5-16.5); LYMPHOCYTES % (AUTO) 6.8 % (20.5-51.1); MEAN CORPUSCULAR HEMOGLOBIN 28 pg (27-31); MEAN CORPUSCULAR HGB CONC 33 g/dL (33-37); MEAN CORPUSCULAR VOLUME 86.7 fL (80-94); MONOCYTES # (AUTO) 0.5 K/uL (0.8-1.0); MONOCYTES % (AUTO) 5.8 % (1.7-9.3); NEUTROPHILS # (AUTO) 7.8 K/uL (1.8-7.7); NEUTROPHILS % (AUTO) 87.4 % (42.2-75.2); PLATELET COUNT (AUTO) 271 K/uL (140-450); RED BLOOD CELL COUNT(AUTO) 3.98 MIL/uL (4.20-5.40); WHITE BLOOD COUNT (AUTO) 8.9 K/uL (4.8-10.8)
[2018-03-21] MEDS: DEXT 5% /NACL 0.9% 1,000 ML IV SCH (07:00)
--- NOTE | 2018-03-21 07:15 | NUR ---
ENDORSED REPORT TO DAYSHIFT NURSE AT BEDSIDE FOR CONTINUITY OF CARE.
--- NOTE | 2018-03-21 07:16 | NUR ---
Received bedside report from pm nurse Janina. Pt sitting at edge of bed, AAOx2, no c/o discomfort. Call light within reach. Fall precaution protocol in place.
[2018-03-21 08:00] VITALS: BP 135/93
[2018-03-21 08:36] LABS: ANION GAP 11.5 (8-16); CARBON DIOXIDE 25.1 mmol/L (21-32); CHLORIDE 110 mmol/L (98-107); CREATININE 0.8 mg/dL (0.6-1.3); GLUCOSE 147 mg/dL (74-106); POTASSIUM 3.6 mmol/L (3.5-5.1); SODIUM SERUM 143 mmol/L (136-145); UREA NITROGEN, BLOOD 19 mg/dL (7-18)
[2018-03-21 08:37] LABS: ALBUMIN 2.8 g/dL (3.4-5.0); ASPARTATE AMINOTRANSFERASE 98 U/L (15-37); TOTAL BILIRUBIN 0.2 mg/dL (0.0-1.0)
[2018-03-21] MEDS: SODIUM PHOSPHATE 118 ML ENEM RC SCH (09:00)
--- NOTE | 2018-03-21 09:00 | NUR ---
Pt refused fleet enema at this time. Per pt, she wants to wait for dulcolax supp to work in a few hours. Agreed to receive enema if no BM in 4hours.
[2018-03-21] MEDS: METOPROLOL 25 MG TAB PO SCH (09:44)
[2018-03-21] MEDS: ATORVASTATIN 20 MG TAB PO SCH (09:45)
[2018-03-21] MEDS: BISACODYL 10 MG SUPP RC SCH (09:45)
[2018-03-21] MEDS: AMIODARONE 200 MG TAB PO SCH (09:45)
[2018-03-21] MEDS: ASPIRIN 81 MG TAB.CHEW PO SCH (09:45)
[2018-03-21] MEDS: PSYLLIUM 12.2 GM/PKT PO SCH (09:46)
[2018-03-21] MEDS: FAMOTIDINE 20 MG/2 ML VIAL IV SCH (09:46)
[2018-03-21] MEDS: PANTOPRAZOLE 40 MG INJ VIAL IVP SCH (09:46)
[2018-03-21 12:00] VITALS: BP 144/82
--- NOTE | 2018-03-21 12:09 | NUR ---
03/21/18 RD INITIAL ASSESSMENT COMPLETED PLEASE REFER TO NUTRITION ASSESSMENT UNDER CARE ACTIVITY FOR ESTIMATED NUTRITIONAL NEEDS. 1. CONTINUE REGULAR DIET TOLERATED 2. EDUCATE ON HIGH FIBER FOODS 3. RD TO FOLLOW-UP 3-5 DAYS, MODERATE RISK ANNIE ABDALLA RD
--- NOTE | 2018-03-21 12:10 | NUR ---
Dr Mir at bedside assessing pt. Pt sitting up in bed, respirations even & nonlabored on O2 @ 2LPM via n/c, no c/o disomfort. [id number] & grand daughter at bedside visiting pt.
--- NOTE | 2018-03-21 13:00 | NUR ---
CALLED [facility] AND SPOKE WITH DAVID. SHE SAID THE PATIENT LIV[place] [facility]. HAVE 02 AND 02 CONCENTRATOR AND WALKER. A/O/ STRING WINDING MACHINE OPERATOR IS DAUGHTER RODNEY COLES WHO USUALLY TRANSPORT THE PATIENT. INFORMED DAVID THAT SHE WILL BE DISCHARGED TODAY AND DAUGHTER WILL VICE PRESIDENT INVESTOR RELATIONS PATIENT TO GO BACK TO [facility].
[2018-03-21] MEDS ORDERED: LEVO750T2 PO (13:51)
[2018-03-21] MEDS ORDERED: BISA-213 RC (13:54)
[2018-03-21] MEDS ORDERED: FAMO-90 PO (13:55)
[2018-03-21] MEDS ORDERED: PRED20TA6 PO (13:56)
[2018-03-21] MEDS ORDERED: GUAI237L61 PO (13:57)
--- NOTE | 2018-03-21 14:00 | NUR ---
WRITTEN & VERBAL DISCHARGE INSTRUCTIONS PROVIDED TO PT. PT VERBALIZED UNDERSTANDING. IV SITE DISCONTINUED. PT ABLE TO CHANGE TO PERSONAL CLOTHES INDEPENDENTLY. GRAND DAUGHTER AT BEDSIDE TO TRANSPORT PT TO [facility] VIA PRIVATE CAR.
--- NOTE | 2018-03-21 14:01 | NUR ---
PT LEAVING DOES NOT WANT TX NO SIGNS OF DISTRESS NOTED
--- NOTE | 2018-03-21 14:20 | NUR ---
PT DISCHARGED TO [facility] AT THIS TIME. LEFT UNIT VIA WHEELCHAIR, ACCOMPANIED BY RN & GRAND DAUGHTER. PT ABLE TO AMB WITH STEADY GAIT. NO C/O DISCOMFORT. NAME BAND REMOVED. ALL BELONGINGS WITH PT.
== END 2018-03-21 14:20 | disposition home or self-care (01) | DRG 694 ==
LOC: MED 08:13 → MTU 13:11
PROVIDERS: ADMIT Hospitalist; ATTEND Hospitalist
PROC: 0DB78ZX Excision of Stomach, Pylorus, Via Natural or Artificial Opening Endoscopic, Diagnostic (ICD-10-PCS; 2018-03-18)
PROC: 0DB68ZX Excision of Stomach, Via Natural or Artificial Opening Endoscopic, Diagnostic (ICD-10-PCS; principal; 2018-03-18 07:30)
DX: N13.0 Hydronephrosis with ureteropelvic junction obstruction (principal); J44.1 Chronic obstructive pulmonary disease with (acute) exacerbation; I48.91 Unspecified atrial fibrillation; Z99.81 Dependence on supplemental oxygen; I10 Essential (primary) hypertension; K59.09 Other constipation; K29.70 Gastritis, unspecified, without bleeding; Z87.891 Personal history of nicotine dependence; Z79.82 Long term (current) use of aspirin; Z79.899 Other long term (current) drug therapy; Z85.3 Personal history of malignant neoplasm of breast
CPT/HCPCS: 36415; 71045; 76770; 80053; 81001; 82150; 83690; 84484; 85025; 85610; 85730; 87081; 87086; 93005; 94640; 96361; 96374; 97110; 97116; 97530; 99285; C9113; J0456; J1956; J2250; J2270; J2765; J2920; J3010; J3490; J7030; J7042; J7060; J7512; J7620; Q0092

== ENCOUNTER 2018-03-29 05:35 | Observation (INO) | payer MEDICARE ==
[~2018-03-29] VITALS: Ht 157.5 cm; Wt 64.9 kg
[~2018-03-29 05:35] MED LIST: AMIO200T5 PO; ASPI81CT89 PO; ATOR10TA PO; BISA-213 RC; FAMO-90 PO; FLUT1BLS3 IH; GUAI237L61 PO; LEVO0.1331 PO; LEVO750T2 PO; OMEP20TC PO; PRED20TA6 PO
[2018-03-29 05:42] VITALS: BP 162/109
[2018-03-29] MEDS ORDERED: NACL 0.9% 500 ML IV SCH (05:59)
[2018-03-29] MEDS ORDERED: fentaNYL 0.05 MG/ML VIAL IVP ONE ×2 (06:00→07:00)
[2018-03-29] MEDS ORDERED: ONDANSETRON 4 MG/2 ML VIAL IVP ONE (06:15)
[2018-03-29 06:23] LABS: BASOPHILS # (AUTO) 0.1 K/uL (0.00-0.22); BASOPHILS % (AUTO) 0.5 % (0.0-2.0); EOSINOPHILS # (AUTO) 0.1 K/uL (0-0.4); EOSINOPHILS % (AUTO) 0.6 % (0.0-4.0); HEMATOCRIT 43.1 % (36-48); HEMOGLOBIN 13.6 g/dL (12.0-16.0); LYMPHOCYTES # (AUTO) 2.4 K/uL (2.5-16.5); LYMPHOCYTES % (AUTO) 16.1 % (20.5-51.1); MEAN CORPUSCULAR HEMOGLOBIN 27 pg (27-31); MEAN CORPUSCULAR HGB CONC 32 g/dL (33-37); MEAN CORPUSCULAR VOLUME 86.2 fL (80-94); MONOCYTES # (AUTO) 1.4 K/uL (0.8-1.0); MONOCYTES % (AUTO) 9.1 % (1.7-9.3); NEUTROPHILS # (AUTO) 11.2 K/uL (1.8-7.7); NEUTROPHILS % (AUTO) 73.7 % (42.2-75.2); PLATELET COUNT (AUTO) 326 K/uL (140-450); RED CELL DISTRIBUTION WIDTH 15.1 % (11.6-13.7); WHITE BLOOD COUNT (AUTO) 15.2 K/uL (4.8-10.8)
[2018-03-29 06:50] LABS: ALBUMIN 3.4 g/dL (3.4-5.0); ANION GAP 11.1 (8-16); ASPARTATE AMINOTRANSFERASE 22 U/L (15-37); CARBON DIOXIDE 32.2 mmol/L (21-32); CHLORIDE 102 mmol/L (98-107); CREATININE 1.1 mg/dL (0.6-1.3); GLUCOSE 96 mg/dL (74-106); POTASSIUM 4.3 mmol/L (3.5-5.1); SODIUM SERUM 141 mmol/L (136-145); TOTAL BILIRUBIN 0.5 mg/dL (0.0-1.0); UREA NITROGEN, BLOOD 22 mg/dL (7-18)
[2018-03-29] MEDS ORDERED: KETOROLAC 30 MG/ML VIAL IVP ONE (07:00)
[2018-03-29 07:04] LABS: PROTHROMBIN TIME 10.3 secs (10.8-13.4)
[2018-03-29 07:17] LABS: APPEARANCE,URINE CLEAR (CLEAR); BILIRUBIN,URINE NEGATIVE (NEGATIVE); BLOOD, URINE NEGATIVE (NEGATIVE); COLOR,URINE YELLOW (YELLOW); LEUKOCYTE ESTERASE ,URINE TRACE (NEGATIVE); NITRITE, URINE NEGATIVE (NEGATIVE); PH,URINE 7.5 (5.0-9.0); UGLUCOSE NEGATIVE (NEGATIVE)
[2018-03-29 07:34] LABS: RBC,URINE 0-5 (RARE) /HPF (0-5); WBC,URINE 0-5 (RARE) /HPF (0-5)
[2018-03-29] MEDS ORDERED: ACETAMINOPHEN 325 MG TAB PO PRN (07:45)
[2018-03-29] MEDS ORDERED: MORPHINE SULFATE 4 MG/ML SYR IVP PRN (07:45)
[2018-03-29] MEDS ORDERED: ALBUTEROL 0.083% 2.5 MG/3 ML NEBU INH PRN (07:45)
[2018-03-29] MEDS ORDERED: HYDROcodone/APAP 5/325 MG 1 TAB TAB PO PRN (07:45)
[2018-03-29] MEDS ORDERED: ONDANSETRON 4 MG/2 ML VIAL IVP PRN (07:45)
[2018-03-29] MEDS ORDERED: BISACODYL 10 MG SUPP RC PRN (08:35)
[2018-03-29] MEDS ORDERED: GUAIFENESIN PO SCH (08:35)
[2018-03-29] MEDS ORDERED: DEXTROMETHORPHAN PO SCH (08:35)
[2018-03-29] MEDS ORDERED: guaiFENesin DM 200/20 MG-10 ML 10 ML UDC PO PRN (08:50)
[2018-03-29] MEDS: DEXT 5% / NACL 0.45% 1,000 ML IV SCH ×2 (08:52→17:44)
[2018-03-29 09:00] VITALS: BP 130/72
[2018-03-29] MEDS ORDERED: NON-FORMULARY ITEM (Fluticasone/Umeclidin/Vilanter (Trelegy Ellipta 100-62.5-25) 1 EACH) IH SCH (09:00)
[2018-03-29] MEDS ORDERED: NON-FORMULARY ITEM (Levothyroxine Sodium* (Synthroid*) 0.137 MG) PO SCH (09:00)
[2018-03-29] MEDS ORDERED: LEVOTHYROXINE 0.112 MG, LEVOTHYROXINE 0.025 MG PO SCH ×2 (09:00)
[2018-03-29] MEDS: FAMOTIDINE 20 MG TAB PO SCH (09:38)
[2018-03-29] MEDS: AMIODARONE 200 MG TAB PO SCH (09:39)
[2018-03-29] MEDS: ATORVASTATIN 20 MG TAB PO SCH (09:39)
[2018-03-29] MEDS: ASPIRIN 81 MG TAB.CHEW PO SCH (09:39)
[2018-03-29] MEDS: HYDROcodone/APAP 5/325 MG 1 TAB TAB PO PRN ×2 (12:16→22:01)
[2018-03-29] MEDS: IPRATROPIUM 0.02% 0.5 MG/2.5 ML NEBU INH SCH ×2 (13:16→19:43)
[2018-03-29] MEDS: ALBUTEROL 0.083% 2.5 MG/3 ML NEBU INH SCH ×2 (13:16→19:43)
[2018-03-29 16:00] VITALS: BP 122/53
[2018-03-29] MEDS ORDERED: traMADol 50 MG TAB PO PRN (18:15)
[2018-03-29] MEDS ORDERED: DOCUSATE SOD/SENNA 50/8.6 MG 1 TAB PO PRN (18:15)
[2018-03-29] MEDS: BUDESONIDE 0.5 MG/2 ML NEBU INH SCH (19:48)
[2018-03-29 23:54] VITALS: BP 136/61
[2018-03-30] MEDS: IPRATROPIUM 0.02% 0.5 MG/2.5 ML NEBU INH SCH ×2 (01:00→07:30)
[2018-03-30] MEDS: ALBUTEROL 0.083% 2.5 MG/3 ML NEBU INH SCH ×2 (01:00→07:30)
[2018-03-30] MEDS ORDERED: LEVOTHYROXINE 0.112 MG, LEVOTHYROXINE 0.025 MG PO SCH ×2 (06:30)
[2018-03-30 07:03] LABS: BASOPHILS % (AUTO) 0.1 % (0.0-2.0); EOSINOPHILS # (AUTO) 0.1 K/uL (0-0.4); EOSINOPHILS % (AUTO) 0.9 % (0.0-4.0); HEMATOCRIT 36.3 % (36-48); HEMOGLOBIN 11.6 g/dL (12.0-16.0); LYMPHOCYTES # (AUTO) 1.4 K/uL (2.5-16.5); LYMPHOCYTES % (AUTO) 15.8 % (20.5-51.1); MEAN CORPUSCULAR HEMOGLOBIN 28 pg (27-31); MEAN CORPUSCULAR HGB CONC 32 g/dL (33-37); MEAN CORPUSCULAR VOLUME 86.7 fL (80-94); MONOCYTES # (AUTO) 0.8 K/uL (0.8-1.0); MONOCYTES % (AUTO) 9.1 % (1.7-9.3); NEUTROPHILS # (AUTO) 6.8 K/uL (1.8-7.7); NEUTROPHILS % (AUTO) 74.1 % (42.2-75.2); PLATELET COUNT (AUTO) 241 K/uL (140-450); RED BLOOD CELL COUNT(AUTO) 4.19 MIL/uL (4.20-5.40); RED CELL DISTRIBUTION WIDTH 15.3 % (11.6-13.7); WHITE BLOOD COUNT (AUTO) 9.2 K/uL (4.8-10.8)
[2018-03-30 07:18] LABS: ALBUMIN 2.5 g/dL (3.4-5.0); ANION GAP 7.7 (8-16); ASPARTATE AMINOTRANSFERASE 20 U/L (15-37); CARBON DIOXIDE 33.4 mmol/L (21-32); CHLORIDE 106 mmol/L (98-107); CREATININE 1.1 mg/dL (0.6-1.3); GLUCOSE 85 mg/dL (74-106); PHOSPHORUS 3.1 mg/dL (2.5-4.9); POTASSIUM 4.1 mmol/L (3.5-5.1); SODIUM SERUM 143 mmol/L (136-145); TOTAL BILIRUBIN 0.4 mg/dL (0.0-1.0); UREA NITROGEN, BLOOD 20 mg/dL (7-18)
[2018-03-30] MEDS: BUDESONIDE 0.5 MG/2 ML NEBU INH SCH (07:30)
[2018-03-30 08:00] VITALS: BP 159/81
[2018-03-30] MEDS: ASPIRIN 81 MG TAB.CHEW PO SCH (08:31)
[2018-03-30] MEDS: AMIODARONE 200 MG TAB PO SCH (08:31)
[2018-03-30] MEDS: ATORVASTATIN 20 MG TAB PO SCH (08:31)
[2018-03-30] MEDS: FAMOTIDINE 20 MG TAB PO SCH (08:31)
[2018-03-30] MEDS ORDERED: ACET-9525 PO (10:34)
== END 2018-04-30 11:10 | disposition home or self-care (01) ==
LOC: MED 05:35 → MTU 07:56 → UNDODISOB 03-30 11:10
PROVIDERS: ADMIT Hospitalist; ATTEND Hospitalist
DX: M54.16 Radiculopathy, lumbar region (principal); N13.30 Unspecified hydronephrosis; J44.9 Chronic obstructive pulmonary disease, unspecified; I10 Essential (primary) hypertension; Z87.891 Personal history of nicotine dependence; R07.89 Other chest pain
CPT/HCPCS: 36415; 71045; 72080; 74176; 80053; 81001; 82948; 83605; 83735; 83880; 84100; 84484; 85025; 85610; 85730; 87040; 87081; 87086; 93005; 94640; 94760; 96372; 96374; 96375; 96376; 97162; 99284; G0378; J1644; J1885; J2405; J3010; J7030; J7613; J7626; J7644; Q0092; 96361; 99285

== ENCOUNTER 2018-08-20 17:43 | Inpatient (IN) | payer MEDICARE ==
[~2018-08-20] VITALS: Ht 162.6 cm; Wt 73.0 kg
[~2018-08-20 17:43] MED LIST changes: +ACET-9525 PO; +ASPI-1718 PO; -ASPI81CT89 PO; -LEVO750T2 PO; -PRED20TA6 PO
--- NOTE | 2018-08-20 17:43 | NUR ---
Patient BIBA ACLS, transferred to bed 10. RN evaluating patient at bedside.
[2018-08-20 17:44] VITALS: BP 147/63
--- NOTE | 2018-08-20 17:44 | NUR ---
BIB EMS FROM [facility]. PT AAOX4 C/O ALL EXTREMITY CRAMPING PAIN TODAY. DENIES INJURY/TRAUMA. VARICOSE VEINS NOTED TO BLE AND SOLES OF FEET. REDNESS TO JOSEFINA FEET NOTED. EQUAL JOSEFINA STRENGTH TO UPPER AND LOWER EXTREMITIES. DENIES SOB. HOB UP. BED SIDE RAILS UP X1. ON LOW BED POSITION, LOCKED. ER MADE AWARE OF PT STATUS.
[2018-08-20] MEDS ORDERED: NACL 0.9% 500 ML IV SCH (17:47)
--- NOTE | 2018-08-20 17:48 | NUR ---
DR RODRIGUEZ AT BEDSIDE FOR PT EVALUATION
[2018-08-20 18:14] LABS: BASOPHILS # (AUTO) 0.1 K/uL (0.00-0.22); BASOPHILS % (AUTO) 0.5 % (0.0-2.0); EOSINOPHILS % (AUTO) 0.2 % (0.0-4.0); HEMATOCRIT 35.7 % (36-48); HEMOGLOBIN 11.6 g/dL (12.0-16.0); LYMPHOCYTES # (AUTO) 1.7 K/uL (2.5-16.5); LYMPHOCYTES % (AUTO) 16.5 % (20.5-51.1); MEAN CORPUSCULAR HEMOGLOBIN 29 pg (27-31); MEAN CORPUSCULAR HGB CONC 33 g/dL (33-37); MEAN CORPUSCULAR VOLUME 88.6 fL (80-94); MONOCYTES # (AUTO) 0.6 K/uL (0.8-1.0); NEUTROPHILS # (AUTO) 7.8 K/uL (1.8-7.7); NEUTROPHILS % (AUTO) 76.8 % (42.2-75.2); PLATELET COUNT (AUTO) 305 K/uL (140-450); RED BLOOD CELL COUNT(AUTO) 4.03 MIL/uL (4.20-5.40); WHITE BLOOD COUNT (AUTO) 10.2 K/uL (4.8-10.8)
[2018-08-20] MEDS ORDERED: LISI10TA11 PO (18:19)
[2018-08-20] MEDS ORDERED: IPRA3AMP2 IH ×2 (18:19)
[2018-08-20] MEDS ORDERED: POTA10TE30 PO (18:19)
[2018-08-20] MEDS ORDERED: ALBU117P IH (18:19)
[2018-08-20] MEDS ORDERED: PANT40EC PO (18:19)
[2018-08-20] MEDS ORDERED: ACET-9882 PO (18:19)
[2018-08-20] MEDS ORDERED: PRED5TAB7 PO (18:19)
[2018-08-20] MEDS ORDERED: CAR30 PO (18:19)
[2018-08-20] MEDS ORDERED: FURO-570 PO (18:19)
[2018-08-20 18:24] LABS: ANION GAP 12.6 (8-16); CARBON DIOXIDE 28.6 mmol/L (21-32); CHLORIDE 102 mmol/L (98-107); GLUCOSE 110 mg/dL (74-106); POTASSIUM 5.2 mmol/L (3.5-5.1); SODIUM SERUM 138 mmol/L (136-145); UREA NITROGEN, BLOOD 28 mg/dL (7-18)
[2018-08-20 18:29] LABS: ALBUMIN 3.1 g/dL (3.4-5.0); ASPARTATE AMINOTRANSFERASE 21 U/L (15-37); TOTAL BILIRUBIN 0.3 mg/dL (0.0-1.0)
[2018-08-20] MEDS ORDERED: PATIROMER CALCIUM SORBITEX 8.4 GM PKT PO ONE (18:30)
[2018-08-20 18:36] LABS: PROTHROMBIN TIME 9.7 secs (10.8-13.4)
--- NOTE | 2018-08-20 18:39 | NUR ---
RADIOLOGY AT BEDSIDE
--- NOTE | 2018-08-20 18:40 | NUR ---
CRITICAL LAB REPORT RECEIVED FROM MAHAD EDMONDSON. TROPONIN: 0.544
[2018-08-20] MEDS ORDERED: NACL 0.9% 2,000 ML IV ONE (18:50)
[2018-08-20] MEDS ORDERED: ASPIRIN 81 MG TAB.CHEW PO ONE (18:50)
[2018-08-20] MEDS ORDERED: ENOXAPARIN 60 MG/0.6 ML SYR SUBQ ONE (18:50)
[2018-08-20 19:09] LABS: APPEARANCE,URINE CLEAR (CLEAR); BILIRUBIN,URINE NEGATIVE (NEGATIVE); BLOOD, URINE NEGATIVE (NEGATIVE); COLOR,URINE YELLOW (YELLOW); NITRITE, URINE NEGATIVE (NEGATIVE); UGLUCOSE NEGATIVE (NEGATIVE)
[2018-08-20 19:14] LABS: LEUKOCYTE ESTERASE ,URINE NEGATIVE (NEGATIVE)
--- NOTE | 2018-08-20 19:20 | NUR ---
Patient will be admitted to care of DR DOMÍNGUEZ. Admited to TELE. Will go to room 120-A. Belongings list completed. Report to RUPERTO TEJEDA.
[2018-08-20 20:00] VITALS: BP 114/60
--- NOTE | 2018-08-20 20:00 | NUR ---
PT ARRIVED ON THE UNIT FROM ER. RECEIVED BEDSIDE REPORT FROM ER NURSE, GREGORIO. PT IS STABLE AND IN NO APPARENT DISTRESS. IVF HANGING AND RUNNING. VITALS TAKEN. ALL SAFETY MEASURES ARE IN PLACE WILL CONTINUE TO MONITOR.
--- NOTE | 2018-08-20 23:15 | NUR ---
PT C/O HARD TO BREATH. CALL RT TO GET BREATHING TREATMENT MD ORDER. WILL CONTINUE MONITOR.
[2018-08-20] MEDS: ALBUTEROL SULFATE/IPRATROPIU 3 ML SOL IH SCH (23:20)
[2018-08-21] VITALS: BP 115/41
--- NOTE | 2018-08-21 02:23 | NUR ---
PT SLEEPING IN BED. NO S/S OF SOB NOTED. WILL CONTINUE TO MONITOR.
[2018-08-21] MEDS: ALBUTEROL SULFATE/IPRATROPIU 3 ML SOL IH SCH ×5 (03:02→23:34)
[2018-08-21 04:00] VITALS: BP 103/45
[2018-08-21] MEDS ORDERED: ACETAMINOPHEN 325 MG TAB PO PRN (04:20)
[2018-08-21] MEDS: HYDROcodone/APAP 5/325 MG 1 TAB TAB PO PRN ×2 (04:54→20:07)
--- NOTE | 2018-08-21 04:54 | NUR ---
PT C/O CHEST AND LEFT ARM PAIN, 5/10. GIVEN NORCO MD ORDERED. WILL CONTINUE TO MONITOR.
[2018-08-21] MEDS: LEVOTHYROXINE 0.112 MG, LEVOTHYROXINE 0.025 MG PO SCH ×2 (06:24)
--- NOTE | 2018-08-21 06:24 | NUR ---
GIVEN SYNTHROID MD ORDERED. PT TOLERATED WELL. PT DENIED ANY PAIN AT THIS TIME. WILL CONTINUE TO MONITOR.
[2018-08-21] MEDS ORDERED: LEVOTHYROXINE 0.025 MG TAB PO SCH (06:30)
[2018-08-21] MEDS ORDERED: ALBUTEROL SULFATE/IPRATROPIU 3 ML SOL IH SCH (07:11)
--- NOTE | 2018-08-21 07:29 | NUR ---
ENDORSED PT TO DAY SHIFT NURSESTEPHANIE. PT IN STABLE CONDITION.
--- NOTE | 2018-08-21 07:30 | NUR ---
RECEIVED BED SIDE REPORT FROM QUALITY ASSURANCE TESTER RN. PT AWAKE ALERT AND ORIENTED X4. ON 3L NC, IV R AC RUNNING NS 175CC/HR, ON TELE MONITOR SHOWING A FIB. SKIN INTACT, BEDSIDE COMMODE NEAR PT, PT DENIES RESPIRATORY DISTRESS HOWEVER PT REQUESTS TO HAVE BREATHING TX Q4H INSTEAD OF PRN. WILL CONTACT MD. NO BP/VENIPUNCTURE ON THE LEFT ARM. CALL LIGHT WITHIN REACH WILL CONTINUE TO MONITOR
[2018-08-21 08:00] VITALS: BP 139/62
--- NOTE | 2018-08-21 08:25 | NUR ---
PATIENT HAS BEEN SCREENED AND CATEGORIZED MODERATE NUTRITION RISK. PATIENT WILL BE SEEN WITHIN 3-5 DAYS OF ADMISSION. 08/23/18ANNIE ABDALLA RD
[2018-08-21] MEDS: PANTOPRAZOLE 40 MG TABEC PO SCH (08:41)
[2018-08-21] MEDS ORDERED: FUROSEMIDE 40 MG TAB PO SCH ×2 (09:00)
[2018-08-21] MEDS ORDERED: DILTIAZEM 30 MG TAB PO SCH ×2 (09:00)
[2018-08-21] MEDS ORDERED: NON-FORMULARY ITEM (Levothyroxine Sodium* (Synthroid*) 0.137 MG) PO SCH (09:00)
[2018-08-21] MEDS ORDERED: LISINOPRIL 10 MG TAB PO SCH ×2 (09:00)
[2018-08-21] MEDS ORDERED: PANTOPRAZOLE 40 MG TABEC PO SCH (09:00)
--- NOTE | 2018-08-21 10:02 | NUR ---
PT COMPLAINED OF SOB, CALLED RT FOR BREATHING TX, RT CURRENTLY AT BEDSIDE, WILL CONTINUE TO MONITOR
--- NOTE | 2018-08-21 11:33 | NUR ---
CAME TO SEE PT.
[2018-08-21 12:00] VITALS: BP 111/45
[2018-08-21] MEDS ORDERED: FUROSEMIDE 20 MG/2 ML VIAL IVP SCH (12:00)
--- NOTE | 2018-08-21 13:40 | NUR ---
CALLED DR. RUIZ ABOUT GIVING METROPOLO TODAY INSTEAD OF WAITING UNTIL TOMORROW MORNING BECAUSE PHARMACY SET METROPOLOL TO BE GIVEN TOMORROW AT 0900. SAID TO GIVE TODAY. GAVE METOPROLOL 0.25MG, HALF A TAB
[2018-08-21] MEDS ORDERED: METOPROLOL SUCCINATE 50 MG TABER PO SCH (14:00)
[2018-08-21] MEDS: MENTHOL/METHYL 10%-15% 114 GM TUBE TP SCH ×2 (15:01→17:00)
[2018-08-21 16:00] VITALS: BP 105/54
[2018-08-21] MEDS: FUROSEMIDE 40 MG/4 ML VIAL IVP SCH (16:17)
--- NOTE | 2018-08-21 16:18 | NUR ---
KAMRAN JARA. BP 105/54
--- NOTE | 2018-08-21 16:52 | NUR ---
PHARMACY CALLED AND SAID THAT ASA 81MG WILL BE STARTED TOMORROW 08/22/18 AT 0900 BECAUSE PT RECEIVED ALREADY 2 DOSES OF ASA WHEN SHE WAS IN THE ER. ASA WILL BE HELD TODAY AND RESUMED TOMORROW MORNING
--- NOTE | 2018-08-21 19:18 | NUR ---
GAVE BEDSIDE REPORT TO RICE FARMER RN. PT IN STABLE CONDITION
--- NOTE | 2018-08-21 19:19 | NUR ---
RECEIVED REPORT FROM DAY SHIFT NURSE. PT LYING IN BED AAOX4. PT C/O PAIN BUT TOLERABLE AT THIS TIME AND REFUSED PAIN MEDS. NO SOB NOTED. ON O2 AT 3L/MIN VIA NC. SKIN INTACT. IV TO RIGHT AC #20G, SALINE LOCK. PT HAS BEDSIDE COMMODE. DISCUSSED PLAN OF CAR, PT VERBALIZED UNDERSTANDING. SAFETY PRECAUTION IN PLACE. CALL LIGHT WITHIN REACH.
[2018-08-21 20:00] VITALS: BP 128/86
--- NOTE | 2018-08-21 20:07 | NUR ---
PT C/O CHEST AND BACK PAIN SCALE 5/10. NORCO 5/325 MG PO GIVEN. PT TOLERATED WELL.
--- NOTE | 2018-08-21 21:10 | NUR ---
PT STILL C/O CHEST AND BACK PAIN 11/18. PER PT, NORCO DIDN'T HELP WITH THE PAIN. PAGED DR. DOMÍNGUEZ, DR. MISTRY FURNACE FIRER. AWAITING FOR CALL BACK.
--- NOTE | 2018-08-21 21:20 | NUR ---
RECEIVED A CALL FROM DR. MISTRY, ORDERED MORPHINE 4 MG IVP Q4HRS PRN FOR SEVERE PAIN.
[2018-08-21] MEDS: MORPHINE SULFATE 4 MG/ML SYR IVP PRN (21:41)
--- NOTE | 2018-08-21 23:30 | NUR ---
PT LYING IN BED. NO C/O PAIN AT THIS TIME. NO SOB. ALL NEEDS ATTENDED AT THIS TIME. CALL LIGHT WITHIN REACH.
--- NOTE | 2018-08-21 23:34 | NUR ---
AWAKE AND ALERT VERBALLY RESPONSIVE PATIENT STATES "IF I'M ASLEEP FOR 0300 BREATHING TX DON'T WAKE ME UP"
[2018-08-22] VITALS: BP 99/67
--- NOTE | 2018-08-22 01:45 | NUR ---
PT SLEEPING AT THIS TIME. NO S/S OF PAIN. NO S/S OF RESP DISTRESS.
--- NOTE | 2018-08-22 02:45 | NUR ---
CALLED [facility] TO FOLLOW UP ECHOCARDIOGRAM NOT DONE YESTERDAY 08/21/18. PER ILIR, SHE WILL MAKE A NOTE/FOLLOW UP TO THE TECH THIS MORNING.
[2018-08-22] MEDS: ALBUTEROL SULFATE/IPRATROPIU 3 ML SOL IH SCH ×6 (03:00→23:15)
--- NOTE | 2018-08-22 03:18 | NUR ---
ASLEEP NO DISTRESS NOTED AT THIS TIME GOOD CHEST RISE NOTED ON 08/21 AT 2334 PATIENT DOES NOT WANT TO BE WOKEN UP FOR BREATHING TX
[2018-08-22 04:00] VITALS: BP 105/75
[2018-08-22] MEDS: ALBUTEROL SULFATE/IPRATROPIU 3 ML SOL IH PRN (04:33)
--- NOTE | 2018-08-22 05:00 | NUR ---
PT LYING IN BED, AWAKE. DENIES PAIN AT THIS TIME. NO RESP DISTRESS NOTED. ALL NEEDS ATTENDED AT THIS TIME.
[2018-08-22] MEDS: LEVOTHYROXINE 0.112 MG, LEVOTHYROXINE 0.025 MG PO SCH ×2 (05:46)
[2018-08-22 06:32] LABS: BASOPHILS % (AUTO) 0.7 % (0.0-2.0); EOSINOPHILS # (AUTO) 0.1 K/uL (0-0.4); HEMATOCRIT 35.8 % (36-48); HEMOGLOBIN 11.5 g/dL (12.0-16.0); LYMPHOCYTES # (AUTO) 2.8 K/uL (2.5-16.5); MEAN CORPUSCULAR HEMOGLOBIN 29 pg (27-31); MEAN CORPUSCULAR HGB CONC 32 g/dL (33-37); MEAN CORPUSCULAR VOLUME 88.9 fL (80-94); MONOCYTES # (AUTO) 0.6 K/uL (0.8-1.0); MONOCYTES % (AUTO) 7.8 % (1.7-9.3); NEUTROPHILS # (AUTO) 3.7 K/uL (1.8-7.7); NEUTROPHILS % (AUTO) 51.5 % (42.2-75.2); PLATELET COUNT (AUTO) 252 K/uL (140-450); RED BLOOD CELL COUNT(AUTO) 4.03 MIL/uL (4.20-5.40); WHITE BLOOD COUNT (AUTO) 7.2 K/uL (4.8-10.8)
[2018-08-22 06:40] LABS: ANION GAP 11.1 (8-16); CARBON DIOXIDE 30.9 mmol/L (21-32); CHLORIDE 104 mmol/L (98-107); CREATININE 1.4 mg/dL (0.6-1.3); GLUCOSE 77 mg/dL (74-106); SODIUM SERUM 142 mmol/L (136-145); UREA NITROGEN, BLOOD 28 mg/dL (7-18)
[2018-08-22 06:55] LABS: PHOSPHORUS 4.4 mg/dL (2.5-4.9)
--- NOTE | 2018-08-22 07:05 | NUR ---
ENDORSED PT TO DAY SHIFT NURSE. PT IN STABLE CONDITION.
--- NOTE | 2018-08-22 07:41 | NUR ---
RECEIVED HAND OFF REPORT FROM TRANSIT DEPARTMENT CLERK NURSE PT IS AWAKE IN BED. PT IS STABLE AND IN NO APPARENT DISTRESS. ALL SAFETY MEASURES ARE IN PLACE. WILL CONTINUE TO MONITOR.
[2018-08-22 08:00] VITALS: BP 115/63
--- NOTE | 2018-08-22 08:30 | NUR ---
CRITICAL LAB VALUE. TROPONIN 5.351. INFORMED DR. RUIZ AND DR. DOMÍNGUEZ. RECEIVED ORDERS AND DR. RUIZ SAID HE WILL BE IN TO SEE PT. PT IS ASYMPTOMATIC.
--- NOTE | 2018-08-22 08:36 | NUR ---
SANTOSH RAINEY FROM [facility] CALLED [phone] [phone] FAX NUMBER [phone] TO GET CLINICAL REVIEW ON PATIENT EMILY CANTU. SPOKE TO SARITA WHO IS COVERING FOR JEFFREY LOYA.
[2018-08-22] MEDS ORDERED: METOPROLOL SUCCINATE 50 MG TABER PO SCH (09:00)
[2018-08-22] MEDS: MENTHOL/METHYL 10%-15% 114 GM TUBE TP SCH ×3 (09:00→17:00)
[2018-08-22] MEDS: PANTOPRAZOLE 40 MG TABEC PO SCH (09:02)
[2018-08-22] MEDS: ECOTRIN 81 MG TABEC PO SCH (09:02)
[2018-08-22] MEDS: LOSARTAN 25 MG TAB PO SCH (09:03)
[2018-08-22] MEDS: FUROSEMIDE 40 MG/4 ML VIAL IVP SCH (09:04)
--- NOTE | 2018-08-22 09:18 | NUR ---
ADMINISTERED MORNING MEDICATIONS PT IS STABLE AND IN NO APPARENT DISTRESS. 3L NASAL CANULA IN PLACE. PT STATED NO CHEST PAIN AT THE MOMENT, ALL SAFETY MEASURES ARE IN PLACE. WILL CONTINUE TO MONITOR. PT REFUSED BENGAY MEDICATION. PT STATED THAT IT DID NOT WORK LAST NIGHT.
[2018-08-22] MEDS: ENOXAPARIN 60 MG/0.6 ML SYR SUBQ SCH (10:49)
--- NOTE | 2018-08-22 11:05 | NUR ---
FREQUENT ROUNDING PT IS AWAKE IN BED. PT IS STABLE AND IN NO APPARENT DISTRESS. ALL SAFETY MEASURES ARE IN PLACE. WILL CONTINUE TO MONITOR.
[2018-08-22 12:00] VITALS: BP 86/47
--- NOTE | 2018-08-22 13:20 | NUR ---
FREQUENT ROUNDING PT IS STABLE AND IN NO APPARENT DISTRESS. ALL SAFETY MEASURES ARE IN PLACE. WILL CONTINUE TO MONITOR.
--- NOTE | 2018-08-22 15:02 | NUR ---
FREQUENT ROUNDING ON PATIENT PT IS AWAKE IN BED. PT APPEARS STABLE AND IN NO APPARENT DISTRESS. ALL SAFETY MEASURES ARE IN PLACE. FAMILY IS AT BEDSIDE. WILL CONTINUE TO MONITOR.
[2018-08-22 16:00] VITALS: BP 89/51
--- NOTE | 2018-08-22 17:41 | NUR ---
FREQUENT ROUNDING ON PATIENT PT IS STABLE AND IN NO APPARENT DISTRESS. ALL SAFETY MEASURES ARE IN PLACE. WILL CONTINUE TO MONITOR.
--- NOTE | 2018-08-22 19:27 | NUR ---
ENDORSED PT TO CONFIGURATION ANALYST NURSE. PT IS STABLE AND IN NO APPARENT DISTRESS. ALL SAFETY MEASURES ARE IN PLACE.
--- NOTE | 2018-08-22 19:27 | NUR ---
RECEIVED REPORT FROM ASTRID HICKEY DAYSHIFT NURSE AT BEDSIDE FOR CONTINUITY OF CARE, PT IN STABLE CONDITION.
[2018-08-22 20:00] VITALS: BP 100/46
--- NOTE | 2018-08-22 20:00 | NUR ---
PT SITTING UP IN BED WITH HOB UP 45%. PT IS AOX4 AND HAS A N/C RUNNING 3 LITERS OF SUPPLEMENTAL O2. PT LUNG SOUNDS DIMINISHED. PT SAID THAT SHE HAS SOME PAIN BUT IS TOLERABLE AT THIS TIME, SHE IS REQUESTING A NEB TREATMENT THAT IS DUE AT THIS TIME, RT WAS CALLED AND IS ON THIER WAY. PT HAS IV SITE 20G RAC SALINE LOCKED , BUT FLUSHED PATNET. PT IS ON LOVENOX BLOOD THINNER SHE IS AWARE TO WATCH FOR ANY S/S OF BLEEDING, PT SAYS THER IS NONE. COMMODE EMPTIED 500MLS OF YELLOW URINE AT BEDSIDE. V/S FOLLOWS T 97.4 P 72 R 18 B/P 100/46 02 97% WITH 3 LITERS 02 VIA N/C. RT NOW AT BEDSIDE TO GIVE PT BREATHING TREATMENT.
[2018-08-22] MEDS: HYDROcodone/APAP 5/325 MG 1 TAB TAB PO PRN (21:30)
[2018-08-22] MEDS: METOPROLOL SUCCINATE 50 MG TABER PO SCH (21:42)
--- NOTE | 2018-08-22 21:43 | NUR ---
PT C/O MODERATE PAIN IN RIGHT ARM AND SHOULDER 08/18 GIVEN 1 TAB NORCO PO/PRN, PT B/P RETAKEN AND IT WAS 116/67, PT ALSO GIVEN 2100 TROPOL ER 1/2 TAB (25MG). WILL CONTINUE TO MONITOR FOR PAIN AND SOB. Addendum: 08/22/18 at 2147 by Madisyn Pan RN MEDICATION IS TOPROL XL
[2018-08-23] VITALS: BP 96/37
[2018-08-23] MEDS: MORPHINE SULFATE 4 MG/ML SYR IVP PRN (00:36)
--- NOTE | 2018-08-23 00:40 | NUR ---
PT IN BED WITH C/O OF 8/10 RIGHT ARM AND SHOULDER WELL GENERALIZED PAIN. PT GIVEN IVP MORPHINE FOR SEVEE PAIN, V/S FOLLOWS T 97.1 P 106 R 18 B/P 96/37 02 96% WITH 3 LITERS VIA N/C. WILL CONTINUE TO MONITOR PT FOR PAIN RELIEF.
--- NOTE | 2018-08-23 01:30 | NUR ---
PT IN BED SLEEPING NO S/S OF PAIN OR DISTRESS NOTED.
[2018-08-23] MEDS: ALBUTEROL SULFATE/IPRATROPIU 3 ML SOL IH SCH ×6 (03:15→23:39)
[2018-08-23 04:00] VITALS: BP 104/55
--- NOTE | 2018-08-23 04:00 | NUR ---
PT IN BED RESTING WITH EYES CLOSED, PT AROUSABLE TO NAME. PT DENIES PAIN, V/S FOLLOWS T 98.1 P 105 R 18 B/P 104/55 02 97% WITH 3 LITERS 02 VIA N/C.
[2018-08-23] MEDS: LEVOTHYROXINE 0.112 MG, LEVOTHYROXINE 0.025 MG PO SCH ×2 (06:20)
--- NOTE | 2018-08-23 06:30 | NUR ---
PT GIVEN ORDERED SYNTHROID, AND BLACK COFFEE REQUESTED. NO S/S OF PAIN OR DISTRESS NOTED.
[2018-08-23 06:45] LABS: BASOPHILS # (AUTO) 0.1 K/uL (0.00-0.22); BASOPHILS % (AUTO) 0.8 % (0.0-2.0); EOSINOPHILS # (AUTO) 0.1 K/uL (0-0.4); EOSINOPHILS % (AUTO) 0.6 % (0.0-4.0); HEMATOCRIT 36.6 % (36-48); LYMPHOCYTES # (AUTO) 2.3 K/uL (2.5-16.5); LYMPHOCYTES % (AUTO) 22.4 % (20.5-51.1); MEAN CORPUSCULAR HEMOGLOBIN 29 pg (27-31); MEAN CORPUSCULAR HGB CONC 33 g/dL (33-37); MEAN CORPUSCULAR VOLUME 88.7 fL (80-94); MONOCYTES # (AUTO) 0.8 K/uL (0.8-1.0); NEUTROPHILS # (AUTO) 6.9 K/uL (1.8-7.7); NEUTROPHILS % (AUTO) 68.2 % (42.2-75.2); PLATELET COUNT (AUTO) 260 K/uL (140-450); RED BLOOD CELL COUNT(AUTO) 4.12 MIL/uL (4.20-5.40); RED CELL DISTRIBUTION WIDTH 15.3 % (11.6-13.7); WHITE BLOOD COUNT (AUTO) 10.1 K/uL (4.8-10.8)
--- NOTE | 2018-08-23 07:17 | NUR ---
REPORT GIVEN TO ASTRID HICKEY DAYSHIFT NURSE AT BEDSIDE FOR CONTINUITY OF CARE, PT IN STABLE CONDITION.
--- NOTE | 2018-08-23 07:20 | NUR ---
RECEIVED HAND OFF REPORT FROM INSPECTOR EYEGLASS FRAMES NURSE PT IS STABLE AND IN NO APPARENT DISTRESS. ALL SAFETY MEASURES ARE IN PLACE WILL CONTINUE TO MONITOR.
[2018-08-23 07:25] LABS: ANION GAP 12.1 (8-16); CARBON DIOXIDE 28.9 mmol/L (21-32); CHLORIDE 101 mmol/L (98-107); CREATININE 1.4 mg/dL (0.6-1.3); GLUCOSE 79 mg/dL (74-106); SODIUM SERUM 138 mmol/L (136-145); UREA NITROGEN, BLOOD 32 mg/dL (7-18)
[2018-08-23 07:39] LABS: PHOSPHORUS 4.1 mg/dL (2.5-4.9)
[2018-08-23 08:00] VITALS: BP 80/60
[2018-08-23] MEDS: METOPROLOL SUCCINATE 50 MG TABER PO SCH ×2 (09:00→21:00)
[2018-08-23] MEDS: MENTHOL/METHYL 10%-15% 114 GM TUBE TP SCH ×3 (09:00→17:00)
[2018-08-23] MEDS ORDERED: ENOXAPARIN 60 MG/0.6 ML SYR SUBQ SCH (09:00)
--- NOTE | 2018-08-23 09:30 | NUR ---
FREQUENT ROUNDING PT IS AWAKE AND STABLE IN BED NO APPARENT DISTRESS, ALL SAFETY MEASURES ARE IN PLACE WILL CONTINUE TO MONITOR.
[2018-08-23] MEDS: ECOTRIN 81 MG TABEC PO SCH (10:42)
[2018-08-23] MEDS: ISOSORBIDE MONONITRATE 30 MG TABER PO SCH (10:42)
[2018-08-23] MEDS: PANTOPRAZOLE 40 MG TABEC PO SCH (10:43)
[2018-08-23] MEDS: LOSARTAN 25 MG TAB PO SCH (10:45)
[2018-08-23] MEDS: ENOXAPARIN 60 MG/0.6 ML SYR SUBQ SCH (10:54)
[2018-08-23 12:00] VITALS: BP 75/51
--- NOTE | 2018-08-23 12:15 | NUR ---
FREQUENT ROUNDING PT IS AWAKE AND STABLE IN BED NO APPARENT DISTRESS, ALL SAFETY MEASURES ARE IN PLACE WILL CONTINUE TO MONITOR
--- NOTE | 2018-08-23 14:05 | NUR ---
FREQUENT ROUNDING PT IS AWAKE AND STABLE IN BED NO APPARENT DISTRESS, ALL SAFETY MEASURES ARE IN PLACE WILL CONTINUE TO MONITOR
[2018-08-23 16:00] VITALS: BP 95/50
--- NOTE | 2018-08-23 16:05 | NUR ---
FREQUENT ROUNDING PT IS AWAKE AND STABLE IN BED NO APPARENT DISTRESS, ALL SAFETY MEASURES ARE IN PLACE WILL CONTINUE TO MONITOR
--- NOTE | 2018-08-23 19:47 | NUR ---
ENDORSED PT TO SWIMMING POOL SALESPERSON NURSE PT IS AWAKE IN BED PT IS STABLE AND IN NO APPARENT DISTRESS. ALL SAFETY MEASURES ARE IN PLACE
--- NOTE | 2018-08-23 19:48 | NUR ---
RECEIVED BEDSIDE REPORT FROM ASTRID HICKEY. PT IS AAOX4. ON 2L O2 VIA NC. PT WITH SOME WHEEZING. HAS BREATHING TREATMENT DUE WILL F/U. SKIN IS INTACT AND AMBULATORY. USES BEDSIDE COMMODE. IV ON RAC SL. PATIENT DNR. HAS UNCONTROLLED A-FIB. DENIES CHEST PAIN OR SOB. PLAN OF CARE DISCUSSED WITH PATIENT. CALL LIGHT WITHIN REACH.
[2018-08-23 20:00] VITALS: BP 100/34
--- NOTE | 2018-08-23 21:30 | NUR ---
VS: 100/34 HR 71 95% 2L O2. 16. 97.0. B/P MED HELD D/T LOW BP. WILL CONTINUE TO MONITOR.
--- NOTE | 2018-08-23 22:30 | NUR ---
PATIENT IS RESTING COMFORTABLY IN BED RESPIRATIONS ARE EQUAL AND UNLABORED. SAFETY MEASURES ARE IN PLACE.
[2018-08-24] VITALS: BP 106/54
--- NOTE | 2018-08-24 00:07 | NUR ---
VITAL SIGNS ARE WITHIN NORMAL LIMITS. ASSISTED PATIENT TO BEDSIDE COMMODE. ALL SAFETY MEASURES ARE IN PLACE WILL CONTINUE TO MONITOR. CALL LIGHT WITHIN REACH.
--- NOTE | 2018-08-24 02:19 | NUR ---
PT IS SLEEPING COMFORTABLY IN BED. CHEST SEEN RISE AND FALL. CALL LIGHT WITHIN REACH.
[2018-08-24] MEDS: ALBUTEROL SULFATE/IPRATROPIU 3 ML SOL IH SCH ×6 (03:48→23:35)
[2018-08-24 04:00] VITALS: BP 101/60
--- NOTE | 2018-08-24 04:08 | NUR ---
VITAL SIGNS ARE WITHIN NORMAL LIMITS. PT DENIES ANY SOB OR PAIN. SAFETY MEASURES ARE IN PLACE. WILL CONTINUE TO MONITOR.
[2018-08-24] MEDS: LEVOTHYROXINE 0.112 MG, LEVOTHYROXINE 0.025 MG PO SCH ×2 (06:05)
--- NOTE | 2018-08-24 07:15 | NUR ---
RECEIVED BEDSIDE REPORT FROM RUPERTO STEVE. PT STABLE, AWAKE, ALERT AND ORIENTED X4. NO SIGNS OF DISTRESS NOTED. DENIES PAIN OR SOB. ON 2L O2 VIA NC. NO REDNESS, SWELLING, OR INFLAMMATION NOTED ON IV SITE. CALL KAY WITHIN REACH. BED IN LOWEST POSITION. PT AMBULATES TO BEDSIDE COMMODE. SAFETY MEASURES IN PLACE. PLAN OF CARE REVIEWED.
[2018-08-24] MEDS: MORPHINE SULFATE 4 MG/ML SYR IVP PRN ×2 (07:54→19:16)
--- NOTE | 2018-08-24 07:56 | NUR ---
ADMINISTERED PRN MORPHINE FOR 10/10 CHEST PAIN, PT TOLERATED WELL. WILL CONTINUE TO MONITOR.
[2018-08-24 07:58] LABS: BASOPHILS % (AUTO) 0.4 % (0.0-2.0); EOSINOPHILS # (AUTO) 0.1 K/uL (0-0.4); EOSINOPHILS % (AUTO) 0.8 % (0.0-4.0); HEMATOCRIT 31.8 % (36-48); HEMOGLOBIN 10.6 g/dL (12.0-16.0); LYMPHOCYTES # (AUTO) 1.6 K/uL (2.5-16.5); LYMPHOCYTES % (AUTO) 25.5 % (20.5-51.1); MEAN CORPUSCULAR HEMOGLOBIN 29 pg (27-31); MEAN CORPUSCULAR HGB CONC 33 g/dL (33-37); MEAN CORPUSCULAR VOLUME 87.1 fL (80-94); MONOCYTES # (AUTO) 0.6 K/uL (0.8-1.0); MONOCYTES % (AUTO) 9.5 % (1.7-9.3); NEUTROPHILS # (AUTO) 4.1 K/uL (1.8-7.7); NEUTROPHILS % (AUTO) 63.8 % (42.2-75.2); PLATELET COUNT (AUTO) 237 K/uL (140-450); RED BLOOD CELL COUNT(AUTO) 3.65 MIL/uL (4.20-5.40); RED CELL DISTRIBUTION WIDTH 14.7 % (11.6-13.7); WHITE BLOOD COUNT (AUTO) 6.5 K/uL (4.8-10.8)
[2018-08-24 08:00] VITALS: BP 156/72
--- NOTE | 2018-08-24 08:00 | NUR ---
PT STATES CHEST PAIN IS DECREASING. WILL CONTINUE TO MONITOR.
[2018-08-24 08:04] LABS: ANION GAP 8.9 (8-16); CARBON DIOXIDE 29.4 mmol/L (21-32); CHLORIDE 103 mmol/L (98-107); CREATININE 1.3 mg/dL (0.6-1.3); GLUCOSE 91 mg/dL (74-106); POTASSIUM 4.3 mmol/L (3.5-5.1); SODIUM SERUM 137 mmol/L (136-145); UREA NITROGEN, BLOOD 33 mg/dL (7-18)
[2018-08-24 08:09] LABS: PHOSPHORUS 3.8 mg/dL (2.5-4.9)
[2018-08-24] MEDS: MENTHOL/METHYL 10%-15% 114 GM TUBE TP SCH ×3 (09:00→16:29)
[2018-08-24] MEDS: METOPROLOL SUCCINATE 50 MG TABER PO SCH (09:17)
[2018-08-24] MEDS: LOSARTAN 25 MG TAB PO SCH (09:17)
[2018-08-24] MEDS: ISOSORBIDE MONONITRATE 30 MG TABER PO SCH (09:18)
[2018-08-24] MEDS: PANTOPRAZOLE 40 MG TABEC PO SCH (09:18)
[2018-08-24] MEDS: ECOTRIN 81 MG TABEC PO SCH (09:19)
[2018-08-24] MEDS: ENOXAPARIN 60 MG/0.6 ML SYR SUBQ SCH (09:20)
--- NOTE | 2018-08-24 09:28 | NUR ---
PT DENIES ANY CHEST PAIN, PT STABLE. ADMINISTERED SCHEDULED MEDICATIONS, PT TOLERATED WELL. PT REFUSED BENGAY CREAM. NO OTHER NEEDS AT THIS TIME.
--- NOTE | 2018-08-24 11:45 | NUR ---
VITAL SIGNS TAKEN, PT STABLE. NO OTHER NEEDS AT THIS TIME.
[2018-08-24 12:00] VITALS: BP 101/55
--- NOTE | 2018-08-24 12:18 | NUR ---
PT REFUSED SCHEDULED BENGAY CREAM. NO OTHER NEEDS AT THIS TIME.
--- NOTE | 2018-08-24 13:27 | NUR ---
08/24/18 RD INITIAL ASSESSMENT COMPLETED PLEASE REFER TO NUTRITION ASSESSMENT UNDER CARE ACTIVITY FOR ESTIMATED NUTRITIONAL NEEDS. 1. CONTINUE CARDIAC DIET TOLERATED 2. TLC DIET EDUCATION WAS PROVIDED 3. RD TO FOLLOW-UP 5-7 DAYS, LOW RISK ANNIE ABDALLA RD
--- NOTE | 2018-08-24 13:45 | NUR ---
DR DOMÍNGUEZ AT BEDSIDE. MADE MD AWARE OF PT'S HR IN THE 120S. WILL CONTINUE TO MONITOR.
--- NOTE | 2018-08-24 15:30 | NUR ---
FAMILY AT THE BEDSIDE.
[2018-08-24 16:00] VITALS: BP 101/50
--- NOTE | 2018-08-24 16:40 | NUR ---
PT REFUSED SCHEDULED BENGAY CREAM. PT STABLE. DENIES PAIN OR SOB.
[2018-08-24] MEDS ORDERED: GLYCERIN ADULT 1 SUPP RC SCH (18:00)
--- NOTE | 2018-08-24 18:48 | NUR ---
ADMINISTERED SCHEDULED MEDICATION, PT TOLERATED WELL.
[2018-08-24] MEDS ORDERED: BISACODYL 10 MG SUPP RC SCH (19:00)
--- NOTE | 2018-08-24 19:16 | NUR ---
ADMINISTERED PRN MORPHINE FOR 10/10 CHEST PAIN. ENDORSED REASSESSMENT TO RN SANJUANA AND RUPERTO MONTES.
--- NOTE | 2018-08-24 19:25 | NUR ---
ENDORSED PT TO RUPERTO WEI AND RUPERTO MONTES FOR CONTINUITY OF CARE. PT STABLE.
--- NOTE | 2018-08-24 19:35 | NUR ---
RECEIVED FROM AM RN IN BED AWAKE AND ALERT. VERBALIZING WELL. TELEMETRY MONITORING. CALL LIGHT WITH IN REACH. CARE PLANS FOR THE NIGHT DISCUSSED WITH HER. WITH RECTAL SUPPOSITORY IN PLACE RT C/O CONSTIPATION WITH AM RN. BED ALARM ON. LAC #20 IV SITE INTACT AND INFUSING WELL. NO SOB.
[2018-08-24 20:00] VITALS: BP 115/64
[2018-08-24] MEDS: METOPROLOL 50 MG TAB PO SCH (20:23)
--- NOTE | 2018-08-24 21:46 | NUR ---
USED BEDSIDE COMMODE BUT STILL NO STOOL PRESENT. NOW SITTING UP IN BED. NO SIGNS OF RESP DISTRESS NOTED. WILL CONTINUE TO MONITOR.
--- NOTE | 2018-08-24 23:04 | NUR ---
PT SLEEPING. NO RESTLESSNESS. NO DISTRESS NOTED. BED IN LOW POSITION. CALL LIGHT WITHIN REACH. WILL CONTINUE TO MONITOR.
[2018-08-25] VITALS (8 sets, daily range): BP systolic 77–114; BP diastolic 43–62
--- NOTE | 2018-08-25 00:13 | NUR ---
PT WAS ASSISTED TO USE THE BEDSIDE COMMODE. PT NOW ABLE TO MAKE A BOWEL MOVEMENT. WILL CONTINUE TO MONITOR.
--- NOTE | 2018-08-25 01:22 | NUR ---
PT SLEEPING. EASILY AROUSABLE. NO SIGNS OF DISTRESS. NO SOB. NO CHEST PAIN. COMMODE AT BEDSIDE. BED IN LOW POSITION. CALL LIGHT WITHIN REACH. WILL CONTINUE TO MONITOR.
--- NOTE | 2018-08-25 03:00 | NUR ---
PT STATES SHE FEELS SHORT OF BREATH. ELEVATED HOB FOR COMFORT. MONITORED O2 SAT. MADE PT AWARE OF PT. PT DUE FOR BREATHING TREATMENT. WILL CONTINUE TO MONITOR.
[2018-08-25] MEDS: ALBUTEROL SULFATE/IPRATROPIU 3 ML SOL IH SCH ×6 (03:07→22:15)
--- NOTE | 2018-08-25 05:28 | NUR ---
PT SITTING UP IN BED. LPN CARE MANAGER AT BEDSIDE. ASSISTED TO USE BEDSIDE COMMODE. PT BACK IN BED. NO COMPLAINTS. NO SOB. WILL CONTINUE TO MONITOR. CALL LIGHT WITHIN REACH.
[2018-08-25] MEDS: LEVOTHYROXINE 0.112 MG, LEVOTHYROXINE 0.025 MG PO SCH ×2 (05:39)
--- NOTE | 2018-08-25 05:41 | NUR ---
PT STATES SHE FEELS SHORTNESS OF BREATH. RT NOTIFIED AND MADE AWARE. WILL CONTINUE TO MONITOR.
[2018-08-25] MEDS: ALBUTEROL SULFATE/IPRATROPIU 3 ML SOL IH PRN ×2 (05:45→09:55)
--- NOTE | 2018-08-25 06:44 | NUR ---
WILL ENDORSE PT TO AM SHIFT RN FOR CONTINUITY OF CARE. PT AWAKE AND ALERT. ABLE TO MAKE NEEDS KNOWN. NO COMPLAINTS AT THIS TIME. IN STABLE CONDITION.
[2018-08-25 06:45] LABS: ANION GAP 10.3 (8-16); CARBON DIOXIDE 27.3 mmol/L (21-32); CHLORIDE 100 mmol/L (98-107); CREATININE 1.4 mg/dL (0.6-1.3); GLUCOSE 98 mg/dL (74-106); POTASSIUM 4.6 mmol/L (3.5-5.1); SODIUM SERUM 133 mmol/L (136-145); UREA NITROGEN, BLOOD 32 mg/dL (7-18)
[2018-08-25 06:52] LABS: PHOSPHORUS 3.5 mg/dL (2.5-4.9)
--- NOTE | 2018-08-25 07:10 | NUR ---
RECEIVED BEDSIDE REPORT FROM RUPERTO WEI AND RUPERTO MONTSE. PT STABLE, AWAKE, ALERT AND ORIENTED X4. NO SIGNS OF DISTRESS NOTED. DENIES PAIN OR SOB. ON 2L O2 VIA NC. NO REDNESS, SWELLING, OR INFLAMMATION NOTED ON IV SITE. CALL KAY WITHIN REACH. BED IN LOWEST POSITION. PT AMBULATES TO BEDSIDE COMMODE. SAFETY MEASURES IN PLACE. PLAN OF CARE REVIEWED.
[2018-08-25 07:16] LABS: BASOPHILS # (AUTO) 0.1 K/uL (0.00-0.22); BASOPHILS % (AUTO) 0.6 % (0.0-2.0); EOSINOPHILS % (AUTO) 0.3 % (0.0-4.0); HEMATOCRIT 33.7 % (36-48); HEMOGLOBIN 11.3 g/dL (12.0-16.0); LYMPHOCYTES # (AUTO) 1.5 K/uL (2.5-16.5); LYMPHOCYTES % (AUTO) 16.4 % (20.5-51.1); MEAN CORPUSCULAR HEMOGLOBIN 29 pg (27-31); MEAN CORPUSCULAR HGB CONC 33 g/dL (33-37); MEAN CORPUSCULAR VOLUME 87.6 fL (80-94); MONOCYTES # (AUTO) 0.8 K/uL (0.8-1.0); NEUTROPHILS # (AUTO) 6.7 K/uL (1.8-7.7); NEUTROPHILS % (AUTO) 73.7 % (42.2-75.2); PLATELET COUNT (AUTO) 258 K/uL (140-450); RED BLOOD CELL COUNT(AUTO) 3.85 MIL/uL (4.20-5.40); RED CELL DISTRIBUTION WIDTH 14.7 % (11.6-13.7); WHITE BLOOD COUNT (AUTO) 9.1 K/uL (4.8-10.8)
[2018-08-25] MEDS: LOSARTAN 25 MG TAB PO SCH (09:00)
[2018-08-25] MEDS: METOPROLOL 50 MG TAB PO SCH ×2 (09:00→23:14)
[2018-08-25] MEDS: MENTHOL/METHYL 10%-15% 114 GM TUBE TP SCH ×3 (09:00→16:17)
[2018-08-25] MEDS: ECOTRIN 81 MG TABEC PO SCH (09:32)
[2018-08-25] MEDS: DOCUSATE SODIUM 100 MG GELCAP PO SCH (09:32)
[2018-08-25] MEDS: ISOSORBIDE MONONITRATE 30 MG TABER PO SCH (09:33)
[2018-08-25] MEDS: PANTOPRAZOLE 40 MG TABEC PO SCH (09:35)
[2018-08-25] MEDS: ENOXAPARIN 60 MG/0.6 ML SYR SUBQ SCH (09:41)
--- NOTE | 2018-08-25 09:49 | NUR ---
ADMINISTERED SCHEDULED MEDICATIONS, HELD SCHEDULED METOPROLOL AND LOSARTAN FOR BP 100/53 HR 102. WILL CONTINUE TO MONITOR PT.
--- NOTE | 2018-08-25 10:27 | NUR ---
PAGED Rosalinda HUNTER REGARDING DISCHARGE PLAN. AWAITING FOR CALL BACK.
--- NOTE | 2018-08-25 11:20 | NUR ---
FAMILY AT THE BEDSIDE.
--- NOTE | 2018-08-25 12:05 | NUR ---
PAGED DR DOMÍNGUEZ.
--- NOTE | 2018-08-25 12:20 | NUR ---
PAGED DR DOMÍNGUEZ AGAIN.
--- NOTE | 2018-08-25 12:26 | NUR ---
MADE DR DOMÍNGUEZ AWARE OF BP 77/45. RECEIVED ORDER FOR 500 CC NS BOLUS. WILL CONTINUE TO MONITOR PT.
[2018-08-25] MEDS ORDERED: NACL 0.9% 500 ML IV SCH (12:30)
--- NOTE | 2018-08-25 12:40 | NUR ---
ADMINISTERED 500 CC NS BOLUS PER MD ORDER, PT TOLERATED WELL. PT REFUSED BENGAY CREAM, NO OTHER NEEDS AT THIS TIME.
[2018-08-25] MEDS ORDERED: ONDANSETRON 4 MG/2 ML VIAL IVP PRN (13:15)
--- NOTE | 2018-08-25 13:25 | NUR ---
BP RECHECKED, /53. MADE DR DOMÍNGUEZ AWARE. PER DR DOMÍNGUEZ, CONTINUE TO MONITOR.
--- NOTE | 2018-08-25 14:30 | NUR ---
BP RECHECKED, 91/50. PT DENIES ANY DIZZINESS OR PAIN. WILL CONTINUE TO MONITOR.
--- NOTE | 2018-08-25 16:18 | NUR ---
PT REFUSED SCHEDULED BENGAY CREAM. NO OTHER NEEDS AT THIS TIME.
--- NOTE | 2018-08-25 17:04 | NUR ---
PAGED DR DOMÍNGUEZ.
--- NOTE | 2018-08-25 17:07 | NUR ---
MADE DR DOMÍNGUEZ AWARE OF BP 90/43. RECEIVED ORDER FOR NS AT 75CC / HR.
[2018-08-25] MEDS: NACL 0.9% 1,000 ML IV SCH (18:19)
--- NOTE | 2018-08-25 18:22 | NUR ---
IVF STARTED PER MD ORDER. WILL CONTINUE TO MONITOR.
--- NOTE | 2018-08-25 19:14 | NUR ---
ENDORSED PT TO RUPERTO ZEPEDA FOR CONTINUITY OF CARE. PT STABLE.
--- NOTE | 2018-08-25 19:15 | NUR ---
RECEIVED BEDSIDE REPORT FROM DAY SHIFT RN, PATIENT USING THE COMMODE, C/O SOB REQUESTING BREATHING TREATMENT, VITALS STABLE AT THIS TIME. CALLED RT FOR BREATHING TREATMENT.
--- NOTE | 2018-08-25 20:20 | NUR ---
VITAL SIGNS STABLE, BP NOW IN NORMAL RANGE AT 114/62. HOLDING SCHEDULED BP MEDICATION DUE TO RECENT EPISODE OF HYPOTENSION. WILL INFORM DOCTOR.
[2018-08-25] MEDS: MORPHINE SULFATE 4 MG/ML SYR IVP PRN (22:28)
--- NOTE | 2018-08-25 22:28 | NUR ---
PATIENT C/O 10/18 SUBSTERNAL PAIN IN LUNGS, RT AT BEDSIDE ADMINISTERING BREATHING TREATMENT. ADMINISTERED PRN MORPHINE. WILL STAY WITH PATIENJT
--- NOTE | 2018-08-25 22:45 | NUR ---
SPOKE TO DR. TRACY, PATIENT IS ANXIOUS AND C/O SOB DESPITE RECENT BREATHING TREATMENT AND 98% SPO2. PATIENT IS STATING THAT RECENTLY ADMINISTERED MORPHINE IS NOT EFFECTIVE. DR ORDERED ATIVAN 0.5MG PO, WILL ADMINISTER ORDERED. NO NEW PAIN MEDICATIONS ORDERED AT THIS TIME.
[2018-08-25] MEDS ORDERED: LORazepam 0.5 MG TAB PO PRN (22:55)
[2018-08-25] MEDS: HYDROcodone/APAP 5/325 MG 1 TAB TAB PO PRN (23:15)
--- NOTE | 2018-08-25 23:15 | NUR ---
PATIENT BP 159/94, HR 143. PATIENT VERY ANXIOUS AN DC/O PAIN. WILL ADMINISTER LOPRESSOR THAT WAS PREVIOUSLY HELD DUE TO HYPOTENSION EARLY TODAY. HYPO TENSION HAS NOW RESOLVED. WILL CONTINUE TO MONITOR PATIENT VITALS SIGNS CLOSELY.
[2018-08-26] VITALS (9 sets, daily range): BP systolic 90–142; BP diastolic 42–81
--- NOTE | 2018-08-26 00:20 | NUR ---
BLOOD PRESSURE SLIGHTLY HYPOTENSIVE, NO C/O DIZZINESS OR HEADACHE AT THIS TIME. CHEST PAIN HAS RESOLVED TO TOLERABLE LEVEL. PATIENT RESTING IN BED WITH HOB AT 45 DEGREES. BREATHING EASY AT THIS TIME.
[2018-08-26] MEDS: ALBUTEROL SULFATE/IPRATROPIU 3 ML SOL IH SCH ×6 (02:40→23:27)
[2018-08-26] MEDS: MORPHINE SULFATE 4 MG/ML SYR IVP PRN ×3 (02:40→23:27)
--- NOTE | 2018-08-26 02:40 | NUR ---
PATIENT C/O CHEST PAIN AND REQUESTING BREATHING TREATMENT. ADMINISTERED PRN PAIN MEDICATION.
--- NOTE | 2018-08-26 03:05 | NUR ---
PATIENT VOIDED 75ML OF URINE AND STATES THAT SHE "CAN'T PEE EVEN THOUGH I NEED TO PEE". BLADDER SCAN REVELS 724ML, SECOND SCAN WAS GREATER THAN 900ML, BLADDER IS FIRM AND DISTENDED, WILL NOTIFY
--- NOTE | 2018-08-26 03:15 | NUR ---
SPOKE TO DR. TRACY ABOUT URINE RETENTION. DR. TRACY PLACED ORDER TO INSERT GONZALEZ CATHETER DUE TO URINARY RETENTION.
--- NOTE | 2018-08-26 03:30 | NUR ---
INSERTED 16 F GONZALEZ CATHETER DUE TO URINARY RETENTION, DRAINED 1000 ML OF LIGHT OSIEL URINE. PATIENT TOLERATED PROCEDURE WELL. EDUCATED PATIENT ON NEED FOR PROCEDURE AND ASSOCIATED RISKS PRIOR TO PROCEDURE. SALINE PORT FOR BALLOON INFLATION IS LEAKING SALINE AT HUB. BALLOON IS DEFLATING. WILL DISCONTINUE GONZALEZ AND RE-INSERT NEW GONZALEZ KIT.
--- NOTE | 2018-08-26 03:45 | NUR ---
DISCONTINUED DEFECTIVE GONZALEZ, INSERTED NEW GONZALEZ CATHETER. PATIENT TOLERATED PROCEDURE WELL. WILL CONTINUE TO MONITOR URINE OUTPUT. Addendum: 08/26/18 at 0408 by Felecia Patterson RN GONZALEZ INSERTED WAS A 16 TAJIK CATHETER.
--- NOTE | 2018-08-26 05:30 | NUR ---
PATIENT SLEEPING. NO SIGNS OF DISTRESS ON 3L O2 VIA NC.
[2018-08-26] MEDS: LEVOTHYROXINE 0.112 MG, LEVOTHYROXINE 0.025 MG PO SCH ×2 (06:56)
[2018-08-26] MEDS: NACL 0.9% 1,000 ML IV SCH ×2 (06:58→19:50)
--- NOTE | 2018-08-26 07:15 | NUR ---
PATIENT AWAKE AND C/O PAIN 10/18., ADMINISTERED PRN MORPHINE.
--- NOTE | 2018-08-26 07:29 | NUR ---
RECEIVED BEDSIDE REPORT FROM RUPERTO ZEPEDA. PT STABLE, AWAKE, ALERT AND ORIENTED X4. PT COMPLAINING OF CHEST PAIN, RUPERTO ZEPEDA MEDICATED PT. ON 3L O2 VIA NC. NO REDNESS, SWELLING, OR INFLAMMATION NOTED ON IV SITE. GONZALEZ CATHETER IN PLACE DRAINING CLEAR YELLOW URINE. CALL KAY WITHIN REACH. BED IN LOWEST POSITION. PT AMBULATES TO THE BEDSIDE COMMODE. SAFETY MEASURES IN PLACE. PLAN OF CARE REVIEWED.
--- NOTE | 2018-08-26 07:30 | NUR ---
GAVE BEDSIDE REPORT TO DAY SHIFT RN. ENDORSED PATIENT IN STABLE CONDITION
[2018-08-26] MEDS: MENTHOL/METHYL 10%-15% 114 GM TUBE TP SCH ×3 (09:00→16:10)
[2018-08-26] MEDS: LOSARTAN 25 MG TAB PO SCH (09:00)
[2018-08-26] MEDS: METOPROLOL 50 MG TAB PO SCH ×3 (09:00→23:40)
[2018-08-26] MEDS: ECOTRIN 81 MG TABEC PO SCH (09:03)
[2018-08-26] MEDS: DOCUSATE SODIUM 100 MG GELCAP PO SCH (09:03)
[2018-08-26] MEDS: PANTOPRAZOLE 40 MG TABEC PO SCH (09:04)
[2018-08-26] MEDS: ISOSORBIDE MONONITRATE 30 MG TABER PO SCH (09:04)
--- NOTE | 2018-08-26 09:13 | NUR ---
ADMINISTERED SCHEDULED MEDICATIONS, PT TOLERATED WELL. NO OTHER NEEDS AT THIS TIME. Addendum: 08/26/18 at 0918 by Marzena Martinez RN BP RECHECKED, 114/44 HR 103. HELD SCHEDULED METOPROLOL AND LOSARTAN DUE TO LOW BP. WILL CONTINUE TO MONITOR.
[2018-08-26 09:14] LABS: BASOPHILS # (AUTO) 0.1 K/uL (0.00-0.22); BASOPHILS % (AUTO) 0.8 % (0.0-2.0); EOSINOPHILS # (AUTO) 0.1 K/uL (0-0.4); EOSINOPHILS % (AUTO) 0.9 % (0.0-4.0); HEMATOCRIT 35.4 % (36-48); HEMOGLOBIN 11.6 g/dL (12.0-16.0); LYMPHOCYTES # (AUTO) 2.4 K/uL (2.5-16.5); LYMPHOCYTES % (AUTO) 30.7 % (20.5-51.1); MEAN CORPUSCULAR HEMOGLOBIN 29 pg (27-31); MEAN CORPUSCULAR HGB CONC 33 g/dL (33-37); MEAN CORPUSCULAR VOLUME 89.4 fL (80-94); MONOCYTES # (AUTO) 0.7 K/uL (0.8-1.0); MONOCYTES % (AUTO) 8.3 % (1.7-9.3); NEUTROPHILS # (AUTO) 4.7 K/uL (1.8-7.7); NEUTROPHILS % (AUTO) 59.3 % (42.2-75.2); PLATELET COUNT (AUTO) 282 K/uL (140-450); RED BLOOD CELL COUNT(AUTO) 3.96 MIL/uL (4.20-5.40); WHITE BLOOD COUNT (AUTO) 7.8 K/uL (4.8-10.8)
[2018-08-26 09:32] LABS: ANION GAP 12.1 (8-16); CARBON DIOXIDE 27.4 mmol/L (21-32); CHLORIDE 102 mmol/L (98-107); CREATININE 1.2 mg/dL (0.6-1.3); GLUCOSE 92 mg/dL (74-106); POTASSIUM 4.5 mmol/L (3.5-5.1); SODIUM SERUM 137 mmol/L (136-145); UREA NITROGEN, BLOOD 26 mg/dL (7-18)
[2018-08-26 09:51] LABS: MAGNESIUM 2.2 mg/dL (1.8-2.4); PHOSPHORUS 3.5 mg/dL (2.5-4.9)
--- NOTE | 2018-08-26 10:20 | NUR ---
DR MISTRY AND FAMILY AT THE BEDSIDE.
--- NOTE | 2018-08-26 10:55 | NUR ---
BP RECHECKED, 90/[address] MISTRY AWARE OF BP. RECEIVED VERBAL ORDERS FOR 1 LITER NS BOLUS AND MIDODRINE 5MG Q8H PRN FOR SYSTOLIC BP OF <90.
[2018-08-26] MEDS ORDERED: MIDODRINE 5 MG TAB PO PRN (11:05)
[2018-08-26] MEDS ORDERED: NACL 0.9% 1,000 ML IV SCH (11:15)
--- NOTE | 2018-08-26 11:55 | NUR ---
BP RECHECKED, 99/61 HR 98. HELD 1L NS BOLUS AT THIS TIME. WILL CONTINUE TO MONITOR PT.
--- NOTE | 2018-08-26 12:09 | NUR ---
PT REFUSED BENGAY CREAM. WILL CONTINUE TO MONITOR.
--- NOTE | 2018-08-26 14:20 | NUR ---
PT C/O SOB. PT ON 3L O2 VIA NC. CALLED RT LILLIAN FOR BREATHING TREATMENT.
--- NOTE | 2018-08-26 14:30 | NUR ---
PT STABLE, WATCHING T.V. NO OTHER NEEDS AT THIS TIME. Addendum: 08/26/18 at 1550 by Marzena Martinez RN RT AT THE BEDSIDE.
--- NOTE | 2018-08-26 15:50 | NUR ---
SPONGE BATH PROVIDED. LINENS AND GOWN CHANGED.
--- NOTE | 2018-08-26 16:05 | NUR ---
VITAL SIGNS TAKEN, PT STABLE. DENIES PAIN OR SOB. PT REFUSED SCHEDULED BENGAY CREAM. NO OTHER NEEDS AT THIS TIME.
--- NOTE | 2018-08-26 17:08 | NUR ---
PT STABLE, DENIES CHEST PAIN OR SOB. NO OTHER NEEDS AT THIS TIME.
--- NOTE | 2018-08-26 19:05 | NUR ---
ENDORSED PT TO RUPERTO ZEPEDA FOR CONTINUITY OF CARE. PT STABLE.
--- NOTE | 2018-08-26 19:06 | NUR ---
RECEIVED BEDSIDE REPORT FROM DAY SHIFT RN KRISHNA, PATIENT IN STABLE CONDITION, SITTING UP IN BED, CALL LIGHT IN REACH SAFETY PRECAUTIONS IN PLACE. NO SIGNS OF DISTRESS ON 3L O2 NC.
--- NOTE | 2018-08-26 21:00 | NUR ---
BLOOD PRESSURE IS 106/46, HR IS 109, WILL 2100 DOSE OF METOPROLOL AND CONTINUE TO MONITOR VITALS
--- NOTE | 2018-08-26 21:46 | NUR ---
PATIENT IS ANXIOUS. ADMINISTERED PRN ANXIETY MEDICATION.
--- NOTE | 2018-08-26 22:20 | NUR ---
PATIENT SLEEPING, SAFETY PRECAUTIONS IN PLACE, CALL LIGHT IN REACH. WILL CONTINUE TO MONITOR. NO SIGNS OF DISTRESS ON 3L O2 NC.
--- NOTE | 2018-08-26 23:44 | NUR ---
PATIENT WOKE UP ANXIOUS AND SOB, C/O CHEST PAIN. ADMINISTERED PRN MORPHINE. HR ON HYBRID POWERTRAIN DEVELOPMENT ENGINEER IS FLUCTUATING 140-160S AND BP IS ELEVATED TO 142/77, ADMINISTERED METOPROLOL. RT PROVIDED BREATHING TREATMENT. PATIENT NOW RESTING, ANXIETY AND SOB HAS RESIDED, PATIENT STATES CHEST PAIN IS IMPROVING, WILL CONTINUE TO MONITOR.
--- NOTE | 2018-08-27 00:40 | NUR ---
PATIENT IS SLEEPING, NO SIGNS OF DISTRESS ON 3L O2 NC. SAFETY PRECAUTIONS IN PLACE, CALL LIGHT IN REACH.
--- NOTE | 2018-08-27 02:06 | NUR ---
PATIENT SLEEPING, NO SIGNS OF DISTRESS ON 3L O2 NC. WILL CONTINUE TO MONITOR.
[2018-08-27] MEDS: ALBUTEROL SULFATE/IPRATROPIU 3 ML SOL IH SCH ×2 (03:00→07:22)
--- NOTE | 2018-08-27 03:46 | NUR ---
PATIENT WOKE UP AND TOOK OFF NASAL CANNULA. REAPPLIED NASAL CANNULA AND REPOSITIONED PATIENT FOR COMFORT. PATIENT NOW RESTING, NO SIGNS OF DISTRESS OR C/O PAIN AT THIS TIME.
[2018-08-27 04:00] VITALS: BP 137/73
[2018-08-27] MEDS: LEVOTHYROXINE 0.112 MG, LEVOTHYROXINE 0.025 MG PO SCH ×2 (05:33)
--- NOTE | 2018-08-27 05:35 | NUR ---
ADMINISTERED SCHEDULED MEDICATIONS. PATIENT TOLERATED WELL. REPOSITIONED FOR COMFORT. NO SIGNS OF DISTRESS ON 3L O2 NC.
[2018-08-27 07:31] LABS: BASOPHILS % (AUTO) 0.4 % (0.0-2.0); EOSINOPHILS % (AUTO) 0.4 % (0.0-4.0); HEMATOCRIT 28.6 % (36-48); HEMOGLOBIN 9.5 g/dL (12.0-16.0); LYMPHOCYTES % (AUTO) 12.6 % (20.5-51.1); MEAN CORPUSCULAR HEMOGLOBIN 29 pg (27-31); MEAN CORPUSCULAR HGB CONC 33 g/dL (33-37); MONOCYTES # (AUTO) 0.7 K/uL (0.8-1.0); MONOCYTES % (AUTO) 8.8 % (1.7-9.3); NEUTROPHILS # (AUTO) 6.1 K/uL (1.8-7.7); NEUTROPHILS % (AUTO) 77.8 % (42.2-75.2); PLATELET COUNT (AUTO) 239 K/uL (140-450); RED BLOOD CELL COUNT(AUTO) 3.25 MIL/uL (4.20-5.40); RED CELL DISTRIBUTION WIDTH 14.8 % (11.6-13.7); WHITE BLOOD COUNT (AUTO) 7.8 K/uL (4.8-10.8)
--- NOTE | 2018-08-27 07:45 | NUR ---
RECEIVED HAND OFF REPORT FROM DINING CAR SERVER NURSE PT IS AWAKE AND STABLE IN BED ALL SAFETY MEASURES ARE IN PLACE. WILL CONTINUE TO MONITOR.
[2018-08-27] MEDS: MORPHINE SULFATE 4 MG/ML SYR IVP PRN ×2 (07:53→13:56)
[2018-08-27 08:00] VITALS: BP 158/86
[2018-08-27 08:47] LABS: ALBUMIN 2.4 g/dL (3.4-5.0); ANION GAP 12.8 (8-16); ASPARTATE AMINOTRANSFERASE 45 U/L (15-37); CARBON DIOXIDE 23.7 mmol/L (21-32); CHLORIDE 106 mmol/L (98-107); CREATININE 0.9 mg/dL (0.6-1.3); GLUCOSE 91 mg/dL (74-106); POTASSIUM 4.5 mmol/L (3.5-5.1); SODIUM SERUM 138 mmol/L (136-145); TOTAL BILIRUBIN 0.3 mg/dL (0.0-1.0); UREA NITROGEN, BLOOD 21 mg/dL (7-18)
[2018-08-27 08:48] LABS: PHOSPHORUS 3.3 mg/dL (2.5-4.9)
[2018-08-27] MEDS: MENTHOL/METHYL 10%-15% 114 GM TUBE TP SCH ×3 (09:00→17:00)
[2018-08-27] MEDS: NACL 0.9% 1,000 ML IV SCH ×2 (09:10→22:30)
--- NOTE | 2018-08-27 09:30 | NUR ---
PT IS AWAKE IN BED.. PT HAD COMPLAINTS OF PAIN AND REQUESTED MORPHINE WILL ADMINISTER. PT IS STABLE AND IN NO APPARENT DISTRESS. ALL SAFETY MEASURES ARE IN PLACE, WILL CONTINUE TO MONITOR.
[2018-08-27] MEDS: PANTOPRAZOLE 40 MG TABEC PO SCH (09:35)
[2018-08-27] MEDS: DOCUSATE SODIUM 100 MG GELCAP PO SCH (09:35)
[2018-08-27] MEDS: ECOTRIN 81 MG TABEC PO SCH (09:35)
[2018-08-27] MEDS: METOPROLOL 50 MG TAB PO SCH ×2 (09:37→20:06)
[2018-08-27] MEDS ORDERED: ALBUTEROL 0.083% 2.5 MG/3 ML NEBU INH PRN (10:55)
--- NOTE | 2018-08-27 11:30 | NUR ---
HELPED PT OUT OF BED TO SIT IN CHAIR. PT TOLERATED TRANSFER POORLY. PT IS SITTING IN CHAIR FAMILY AT BEDSIDE. ALL SAFETY MEASURES IN PLACE AND CHANGED LINEN FOR PT. PT IS STABLE WITH 3L NASAL CANULA ON WITH ALL SAFETY MEASURES ARE PLACE WILL CONTINUE TO MONITOR.
--- NOTE | 2018-08-27 11:47 | NUR ---
TRANSFERRED PT BACK TO BED. PT IS COMPLAINING OF DISCOMFORT IN SHOULDERS. PT HAS ALREADY RECEIVED MORPHINE THIS MORNING WILL PROVIDED NON PHARMACOLOGICAL MEASURES TO REDUCE PAIN. PLACED PT ON LEFT SIDE USING WEDGE. ALL SAFETY MEASURES ARE IN PLACE. WILL CONTINUE TO MONITOR.
--- NOTE | 2018-08-27 11:50 | NUR ---
FREQUENT ROUNDING PT IS ASLEEP IN BED NOTABLE CHEST RISE AND FALL. PT APPEARS STABLE AND IN NO APPARENT DISTRESS. ALL SAFETY MEASURES ARE IN PLACE. WILL CONTINUE TO MONITOR.
[2018-08-27 12:00] VITALS: BP 110/58
--- NOTE | 2018-08-27 13:05 | NUR ---
FREQUENT ROUNDING PT IS AWAKE IN BED PT IS STABLE AND IN NO APPARENT DISTRESS. WILL CONTINUE TO MONITOR
[2018-08-27] MEDS: IPRATROPIUM 0.02% 0.5 MG/2.5 ML NEBU INH SCH ×2 (13:17→18:56)
[2018-08-27] MEDS: HYDROcodone/APAP 5/325 MG 1 TAB TAB PO PRN (13:50)
--- NOTE | 2018-08-27 15:35 | NUR ---
FREQUENT ROUNDING PT IS STABLE AND IN NO APPARENT DISTRESS, ALL SAFETY MEASURES ARE IN PLACE.
[2018-08-27 16:00] VITALS: BP 95/44
--- NOTE | 2018-08-27 17:45 | NUR ---
FREQUENT ROUNDING PT IS AWAKE AND STABLE NO APPARENT DISTRESS. ALL SAFETY MEASURES ARE IN PLACE
--- NOTE | 2018-08-27 19:28 | NUR ---
ENDORSED PT TO INSTRUMENT TECHNICIAN RN PT IS AWAKE AND STABLE ALL SAFETY MEASURES ARE IN PLACE.
--- NOTE | 2018-08-27 19:29 | NUR ---
RECEIVED BEDSIDE REPORT FROM DAY SHIFT NURSE. NO S/S OF SOB OR RESPIRATORY DISTRESS NOTED WITH O2 3LPM VIS NC. SKIN INTACT, WARM AND DRY TO TOUCH. GONZALEZ CATHETER IN PLACED. IV TO RAC 20G, RUNNING NS @ 75MLS/HR. PATENT, INTACT, AND ASYMPTOMATIC. DENIED PAIN. ALL SAFETY MEASURES IN PLACE. BED IN LOW POSITION, CALL LIGHT WITHIN REACH.
[2018-08-27 20:00] VITALS: BP 138/80
--- NOTE | 2018-08-27 20:06 | NUR ---
ADMINISTERED SCHEDULED MEDICATION MD ORDERED. PT TOLERATED WELL.
--- NOTE | 2018-08-27 22:30 | NUR ---
PT SLEEPING IN BED COMFORTABLY. HANG NEW NS BAG WITH CURRENT RATE SETTING 75MLS/HR MD ORDERED. BED IN LOW POSITION. CALL LIGHT WITHIN REACH. WILL CONTINUE TO MONITOR.
--- NOTE | 2018-08-27 23:45 | NUR ---
VS CHECKED. WITHIN NORMAL RANGE. PREVIOUS IV LINE WAS . NEW IV STARTED ON RIGHT HAND WITH 22G. GOOD BLOOD RETURN NOTED. PATENT, INTACT, AND ASYMPTOMATIC. PT TOLERATED WELL.
[2018-08-28] VITALS: BP 125/68
[2018-08-28] MEDS: IPRATROPIUM 0.02% 0.5 MG/2.5 ML NEBU INH SCH ×3 (01:00→13:10)
--- NOTE | 2018-08-28 02:17 | NUR ---
PT SLEEPING WITHOUT ANY DISCOMFORT. NO S/S OF SOB OR RESPIRATORY DISTRESS NOTED. BREATHING EVEN AND UNLABORED. IV FLUID RUNNING WILL. BED IN LOW POSITION. CALL LIGHT WITHIN REACH.
[2018-08-28 04:00] VITALS: BP 115/78
--- NOTE | 2018-08-28 04:00 | NUR ---
VS CHECKED, WITHIN NORMAL RANGE. PROVIDED GONZALEZ CATHETER CARE. PT TOLERATED WELL.
--- NOTE | 2018-08-28 05:35 | NUR ---
PT C/O HARD TO BREATH. CALLED RT FOR PT TO HAVE BREATHING TREATMENT.
[2018-08-28] MEDS: LEVOTHYROXINE 0.112 MG, LEVOTHYROXINE 0.025 MG PO SCH ×2 (06:11)
[2018-08-28] MEDS: MORPHINE SULFATE 4 MG/ML SYR IVP PRN (06:43)
--- NOTE | 2018-08-28 07:24 | NUR ---
ENDORSED PT TO DAY SHIFT NURSE. PT IN STABLE CONDITION.
[2018-08-28] MEDS: ALBUTEROL SULFATE/IPRATROPIU 3 ML SOL IH PRN (07:30)
--- NOTE | 2018-08-28 07:30 | NUR ---
RECEIVED PT FROM CURRICULUM AND ASSESSMENT COORDINATOR NURSESONYA, PT IS ON A BREATHING TREATMENT WITH RT ON THE BEDSIDE, SIDE RAILS ARE UP AND CALL LIGHT WITHIN REACH, PT HAS AN IV LINE ON THE RT HAND G. 22 WITH NS AT 75ML/HR INFUSING, INTACT, PT DENIES PAIN AND NO SOB NOTED. 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 NO SIGN OF DISTRESS NOTED AND WILL MONITOR PT.
[2018-08-28 07:38] LABS: MAGNESIUM 1.9 mg/dL (1.8-2.4); PHOSPHORUS 3.6 mg/dL (2.5-4.9)
[2018-08-28 07:39] LABS: BASOPHILS % (AUTO) 0.5 % (0.0-2.0); EOSINOPHILS # (AUTO) 0.1 K/uL (0-0.4); EOSINOPHILS % (AUTO) 1.1 % (0.0-4.0); HEMATOCRIT 32.8 % (36-48); HEMOGLOBIN 10.9 g/dL (12.0-16.0); LYMPHOCYTES # (AUTO) 1.7 K/uL (2.5-16.5); LYMPHOCYTES % (AUTO) 21.7 % (20.5-51.1); MEAN CORPUSCULAR HEMOGLOBIN 30 pg (27-31); MEAN CORPUSCULAR HGB CONC 33 g/dL (33-37); MONOCYTES # (AUTO) 0.7 K/uL (0.8-1.0); MONOCYTES % (AUTO) 8.5 % (1.7-9.3); NEUTROPHILS # (AUTO) 5.2 K/uL (1.8-7.7); NEUTROPHILS % (AUTO) 68.2 % (42.2-75.2); PLATELET COUNT (AUTO) 280 K/uL (140-450); RED BLOOD CELL COUNT(AUTO) 3.68 MIL/uL (4.20-5.40); WHITE BLOOD COUNT (AUTO) 7.7 K/uL (4.8-10.8)
[2018-08-28 07:41] LABS: ALBUMIN 2.6 g/dL (3.4-5.0); ANION GAP 14.1 (8-16); ASPARTATE AMINOTRANSFERASE 49 U/L (15-37); CARBON DIOXIDE 23.6 mmol/L (21-32); CHLORIDE 107 mmol/L (98-107); GLUCOSE 79 mg/dL (74-106); POTASSIUM 4.7 mmol/L (3.5-5.1); SODIUM SERUM 140 mmol/L (136-145); TOTAL BILIRUBIN 0.4 mg/dL (0.0-1.0); UREA NITROGEN, BLOOD 20 mg/dL (7-18)
--- NOTE | 2018-08-28 07:50 | NUR ---
PT IS AWAKE AND VITAL SIGNS IS TAKEN, BP IS 129/72, PULSE IS 86, O2 SATURATION IS 97%, TEMPERATURE IS 98.3 AND RESPIRATION IS 18/MIN, NO SIGN OF DISTRESS NOTED AND WILL MONITOR PT.
[2018-08-28 08:00] VITALS: BP 129/72
[2018-08-28] MEDS: MENTHOL/METHYL 10%-15% 114 GM TUBE TP SCH ×3 (09:00→17:00)
[2018-08-28] MEDS: DOCUSATE SODIUM 100 MG GELCAP PO SCH (09:11)
[2018-08-28] MEDS: PANTOPRAZOLE 40 MG TABEC PO SCH (09:12)
[2018-08-28] MEDS: ECOTRIN 81 MG TABEC PO SCH (09:12)
[2018-08-28] MEDS: METOPROLOL 50 MG TAB PO SCH (09:13)
--- NOTE | 2018-08-28 09:18 | NUR ---
PT IS AWAKE AND SEATED ON THE BED WITH OR VIA NC IN PLACE, ORAL MEDICATIONS WERE GIVEN, PARAMETERS CHECKED AND PT TOLERATED IT. NO SIGN OF DISTRESS NOTED AND WILL MONITOR PT.
[2018-08-28 12:00] VITALS: BP 106/65
[2018-08-28] MEDS: NACL 0.9% 1,000 ML IV SCH (12:06)
[2018-08-28] MEDS ORDERED: METO50TA99 PO (12:15)
[2018-08-28] MEDS ORDERED: ASPI-1173 PO (12:15)
[2018-08-28] MEDS ORDERED: FUROSEMIDE 40 MG/4 ML VIAL IVP SCH (12:30)
--- NOTE | 2018-08-28 13:20 | NUR ---
PLACED PT ON 3L
--- NOTE | 2018-08-28 14:51 | NUR ---
CASE MGT: SPOKE WITH ROSY ( ADMISSION COORDINATOR @ [facility]) @ . PATIENT IS ACCEPTED AND ROOM NUMBER IS 128B. TRANSPORTATION HAS BEEN SETUP WITH [facility] @ . SPOKE WITH RICKI, GERIATRIC PSYCHIATRIST TIME IS AT 6:30PM -7:30PM. TRANSPORTATION AUTHORIZATION IS [id number] [facility] AUTHORIZATION NUMBER IS ( FOR [facility]) [id number] INSURANCE CM IS MARRY @ [id number] [id number] CM SPOKE WITH ORDNEY SERVIN ( PATIENT's DAUGHTER IN LAW) @ and INFORM HER OF THE DISCHARGE. PATIENT's daughter in law agreed for the discharge. SHe will inform patients son in law ( Angelo brandt ) of the discharge. CM made nurse aware of discharge.
[2018-08-28 16:00] VITALS: BP 126/81
--- NOTE | 2018-08-28 16:00 | NUR ---
PT IS AWAKE AND VITAL SIGNS TAKEN AND IS STABLE, ERYTHEMA ON SACRAL AREA WAS REINFORCED WITH OPTIFOAM DRESSING. WILL MONITOR PT.
--- NOTE | 2018-08-28 16:44 | NUR ---
CALLED [facility], [phone] AND GAVE REPORT TO RUPERTO DAVIS, INFORMED RN THAT PT WILL BE PLACE IN 128-B AND TRANSPORTATION WILL BE [facility] AND PT WILL BE PICKED UP BETWEEN 1830-1930H. RNSUSAN WAS NOTIFIED REGARDING THE PT'S CONTINUED MEDICATIONS AND THE ONES THAT WAS STOPPED AND RN VERBALIZED UNDERSTANDING.
--- NOTE | 2018-08-28 19:00 | NUR ---
DISCHARGED PT VIA [facility], INSTRUCTIONS AND TEACHINGS GIVEN TO PT AND VERBALIZED UNDERSTANDING. IV LINE AND ARM BAND REMOVED, GONZALEZ CATHETER IN PLACE AND O2 AT 3L VIA NC IN PLACE PT IS STABLE AT THIS TIME.
== END 2018-08-28 19:00 | DRG 280 ==
LOC: MED 17:43 → MTU 19:00 → MED 19:20
PROVIDERS: ADMIT Internal Medicine Pulmonary Disease; ATTEND Internal Medicine Pulmonary Disease
DX: I21.4 Non-ST elevation (NSTEMI) myocardial infarction (principal); J96.21 Acute and chronic respiratory failure with hypoxia; I50.43 Acute on chronic combined systolic (congestive) and diastolic (congestive) heart failure; E03.9 Hypothyroidism, unspecified; F17.200 Nicotine dependence, unspecified, uncomplicated; I11.0 Hypertensive heart disease with heart failure; I25.119 Atherosclerotic heart disease of native coronary artery with unspecified angina pectoris; I48.91 Unspecified atrial fibrillation; J43.9 Emphysema, unspecified; K21.9 Gastro-esophageal reflux disease without esophagitis; Z85.3 Personal history of malignant neoplasm of breast; Z99.81 Dependence on supplemental oxygen; Z88.8 Allergy status to other drugs, medicaments and biological substances; E87.5 Hyperkalemia
CPT/HCPCS: 36415; 71045; 80048; 80053; 81003; 83605; 83735; 83880; 84100; 84484; 85025; 85610; 85730; 87040; 87081; 87086; 93005; 94640; 96360; 96372; 97110; 97116; 97161-GP; 97530; 99285; J1650; J1940; J2270; J7030; J7613; J7620; J7644; Q0092